=== PATIENT | female | born 1950 | race Caucasian/White ===

== ENCOUNTER 2023-06-23 20:42 | Inpatient (IN) | payer OTHER, SELFPAY ==
[2023-06-23 20:55] VITALS: BP 117/71; PULSE 68; RESP 16; TEMP 36.3; O2SAT 97
[2023-06-23 22:02] VITALS: BMI 19.9
--- NOTE | 2023-06-23 22:17 | PC.ADMIT ---
(ARRIVAL TIME 2054 FROM [facility]) pt presented in [facility] ed 8-21 with symptoms of persecutory delusions and auditory and visual hallucinations as well as wandering behavior. pt was found wandering the streets of [place] extremely paranoid and delusional about being raped. the pt has been noncompliant with her psych meds. also of concern is a neurocognitive deficit. on arrival pt is admitted with the assistance of in house candy packer Erik De Jesus. pt signs c-v admission paper. pt arrives smiling and laughing. she does not speak any luxembourgish. pt states that she does not know the year or month. she does not know where she is or where she came from. she does not know where she lives. she is able to give her birthday correctly. she does state she lives alone and daughter is her pcp (nirav). pt will only sign release forms for nirav. pt is suspicious and resistant to taking food or medicines. she is receptive to a bottle water which she drinks. later on pt is noted to be self dialoguing and gesturing with her hands as if their was somewhat at her bedside. her gait is steady and she uses no assist devices. to note she arrived with no personal belongings. hospitalist consult entered and texted to personal protection specialist hospitalist for routine consult.
[2023-06-24 07:00] VITALS: BMI 19.7
--- NOTE | 2023-06-24 10:38 | P.HPPS_ITS ---
HPI Date of Service: 06/24/23 Chief Complaint: Unspec. psychotic D/o, Mixed dementia, delusional Sources of Information: patient interviewed, chart reviewed and crisis/core team assessment reviewed HPI Subjective Notes: [place] Warning and Conditional Voluntary Narrative: The patient is a 73-year-old [place] female, with a were, mother of adult children, referred from the emergency room of another hospital for continuation of care. According to the crisis assessment, the patient was brought BI ambulance to the emergency room since she was found in the streets wandering grossly disorganized. Apparently she was complaining of auditory hallucinations, visual hallucinations and paranoid stating that she had been raped. Also it was evident that the patient had a severe cognitive impairment. The patient was medically cleared and later on assessed by crisis. According to the crisis assessment the patient is only Ecuadorean speaking and her daughter provide collateral information. As per report of her daughter, the patient suffers from dementia and she was previously admitted in [place] for a similar episode of psychosis and dementia. On interview, the patient was unable to remember how come she in the in the hospital. She stated that she was doing fine, but she was unable to remember details. At the moment of the interview, the patient denies auditory hallucinations, visual hallucinations or paranoia. We will try to gather collateral information, the patient signed herself into the hospital with a conditional voluntary but we will try to invoke her healthcare proxy. Past Psychiatric History: A prior an admission into the hospital for psychosis and dementia in [place] several years ago Medical Evaluation Reviewed: Yes PMFSH Family History: Denies Social History: The patient is only Ecuadorean speaking, she lives with her daughter and family his daughter. She is unable to provide details Substance History: Denies Trauma History: Denies Diagnostics Vital Signs (24Hr): Vital Signs - 24 hr 06/23/23 20:55 Temperature 97.3 F Pulse Rate 68 Respiratory Rate 16 Blood Pressure 117/71 Pulse Oximetry 97 Oxygen Delivery Method Room Air BMI result Body Mass Index 19.9 Meds/Allergies Meds Home Medications Medication Instructions Recorded Confirmed Type quetiapine 25 mg tablet (Seroquel) 12.5 mg PO BID 06/24/23 06/24/23 History risperidone 0.25 mg tablet 0.25 mg PO BID 06/24/23 06/24/23 History sertraline 50 mg tablet 50 mg PO DAILY 06/24/23 06/24/23 History trazodone 100 mg PO BEDTIME 06/24/23 06/24/23 History trazodone 50 mg tablet 50 mg PO PRN Anxiety 06/24/23 History Allergies Allergies Allergy/AdvReac Type Severity Reaction Status Date / Time No Known Allergies Allergy Verified 06/23/23 22:04 Mental Status Exam Mental Status Exam Patient Appearance: Appropriate Patient Orientation: Person Level of Consciousness: Awake Patient Behavior: Guarded and Passive Mood Description: Withdrawn Affect Description: Constricted Patient Cognition Impaired: Yes Ability to Follow Directions: Good Speech Pattern: Clear and Difficulty Finding Words Hallucinations: None Delusions: Paranoid Ideation and Ideas of Reference Thought Process: Distracted and Slowed Thinking Thought Content: positive for [place] and positive for Poverty of Content Judgement: Poor Assessment & Plan Assessment & Plan (1) Dementia: Status: Acute Code(s): F03.90 - Unspecified dementia, unspecified severity, without behavioral disturbance, psychotic disturbance, mood disturbance, and anxiety (2) Psychosis: Status: Acute Code(s): F29 - Unspecified psychosis not due to a substance or known physiological co ndition (3) Major depressive disorder: Status: Acute Code(s): F32.9 - Major depressive disorder, single episode, unspecified Plan The patient is an elderly Australian female, only Ecuadorean-speaking, mother of adult children with a past history of dementia, depression and psychosis admitted for wandering in the streets grossly disorganized and paranoid. She was medically cleared and transferring to this facility for psychiatric stabilization. On interview the patient denies acute psychotic symptoms. Plan 1. Gather collateral information. We will try to contact her daughter and get more information. 2. At this moment the patient sinus CV but we will try to find her healthcare proxy. 3. Continue with Zoloft 50 mg p.o. q.a.m.. 4. Continue with Risperdal as prescribed. 5. Follow-up with hospitalist. 6. Reassessment with results Patient educated on: diagnosis and therapeutic strategies Informed Consent: does not understand Reason for continued inpatient stay Substantial Risk for: inability to function, rapid decompensation and med/psych decompensation Statement Statement: I have reviewed the history and physical and performed a pertinent examination on my patient. No changes have occurred unless specified. If the History and Physical was not performed prior to admission, the Hospitalist's service will be consulted for completing the admission physical. Time Spent With Patient Time: Total time managing care of this patient today __45__ minutes.
--- NOTE | 2023-06-24 13:29 | MHC.CLN ---
NUTRITION ALERTED BY STAFF THAT PATIENT IS NOT EATING WELL. ADDING ENSURE TID. PROVIDES ADDITIONAL 1050 KCALS, 60 G PROTEIN.
--- NOTE | 2023-06-24 13:59 | HO.PM.IMCN ---
History of Present Illness Data of Consult Service Date: 06/24/23 Primary Care Provider: Unknown Physician HPI Reason for consult: Admission H&P Pt is a 73-year-old Frisian-speaking female with a PMH significant for advanced dementia with behavioral disturbances and delusions, depression, and anxiety who is admitted to [facility] for increasing auditory and visual hallucinations as well as increasing delusional and wandering behaviors. She has apparently been non-compliant with psychiatric medications recently. Medical consult for admission H&P. ?Pt is alert and oriented to self only and thus incapable of providing an accurate HPI. Labs reviewed, grossly unremarkable. EKG showed normal sinus rhythm with no evidence of ST elevations or depressions. Review of Systems Review of Systems: Unable to obtain d/t pt's mentation. [facility] Social History Household Members: None Household Members Other:: 0 Housing: Apartment Do you presently have visiting nurse or other home services: No (pts daughter works as her mill turner) Patient Tobacco Use Status: Never used Tobacco e-Cigarette/Vaping Use: Never Used Use of substances other than those prescribed or required for medical reasons: No Currently Displaying Signs/Symptoms of Drug Intoxication Withdrawal: No Advance Directives: No Advance Directives Information Provided: No Do you have thoughts of harming others: None Do you have a plan to hurt others: No Plan Recently lost weight without trying: No How much weight loss: Not applicable Eating poorly because of decreased appetite: No Nutrition screen score: 0 Nutrition Risks: No Nutritional Risk Patient : No : No Poor oral hygiene: No service: No Sexual orientation: Straight/Heterosexual Meds Allergies Allergy/AdvReac Type Severity Reaction Status Date / Time No Known Allergies Allergy Verified 06/23/23 22:04 Active Medications: Current Medications Acetaminophen (Acetaminophen 325 Mg Tablet) 650 mg PO Q6H PRN PRN Reason: Headache/Pain Mild Scale (1-3) Al Hydroxide/Mg Hydroxide (Magnesium Hydrox/Alum Hydrox 30 Ml Oral.Susp) 30 ml PO Q6H PRN PRN Reason: Heartburn/Nausea Hydroxyzine HCl (Hydroxyzine Hcl 25 Mg Tablet) 25 mg PO Q6H PRN PRN Reason: Anxiety Magnesium Hydroxide (Milk Of Magnesia 30 Ml Oral.Susp) 30 ml PO DAILY PRN PRN Reason: Constipation Trazodone HCl (Trazodone Hcl 50 Mg Tablet) 50 mg PO BEDTIME MRX1 PRN PRN Reason: Insomnia Home Medications Medication Instructions Recorded Confirmed Last Taken Type quetiapine 25 mg tablet (Seroquel) 12.5 mg PO BID 06/24/23 06/24/23 Unknown History risperidone 0.25 mg tablet 0.25 mg PO BID 06/24/23 06/24/23 Unknown History sertraline 50 mg tablet 50 mg PO DAILY 06/24/23 06/24/23 Unknown History trazodone 100 mg PO BEDTIME 06/24/23 06/24/23 Unknown History trazodone 50 mg tablet 50 mg PO PRN Anxiety 06/24/23 Unknown History Physical Exam Vital Signs and Narrative: Vital Signs: Last Vital Signs Temp 97.3 F 06/23/23 20:55 Pulse 68 06/23/23 20:55 Resp 16 06/23/23 20:55 BP 117/71 06/23/23 20:55 Pulse Ox 97 06/23/23 20:55 O2 Del Method Room Air 06/23/23 20:55 BMI result Body Mass Index 19.9 General: Alert and oriented to person only, no acute distress Resp: CTA bilaterally CVS: S1, S2, RRR GI: +BS, NT, no distention Skin: No rash Neuro: Cranial nerves II-XII grossly intact bilaterally. Motor grossly intact bilaterally Extremities: No edema Psych: Appropriate affect Assessment and Plan (1) Routine history and physical examination of adult: Status: Acute Plan Pt is a 73-year-old Frisian-speaking female with a PMH significant for advanced dementia with behavioral disturbances and delusions, depression, and anxiety who is admitted to [facility] for increasing auditory and visual hallucinations as well as increasing delusional and wandering behaviors. She has apparently been non-compliant with psychiatric medications recently. Medical consult for admission H&P. ?Pt is alert and oriented to self only and thus incapable of providing an accurate HPI. Mood disorder Plan as per psychiatry Pt otherwise has no known PMH and only on psychiatric home meds. Thank you for allowing us to participate in the care of this patient. Signing off at this time. Please let us know if there are any acute complaints or questions. Time Spent With Patient Time: Total time managing care of this patient today ____ minutes.
[2023-06-24] MEDS: Acetaminophen 325 MG TABLET 650 MG PO (16:24)
[2023-06-24] MEDS: traZODone HCL 100 MG TABLET PO (20:23)
[2023-06-24 20:26] VITALS: BP 135/68; PULSE 100; RESP 18; TEMP 36.1; O2SAT 95
[2023-06-25 08:00] VITALS: BP 120/66; PULSE 92; RESP 18; TEMP 37; O2SAT 97
[2023-06-25] MEDS: risperiDONE 0.25 MG TABLET PO (09:35)
[2023-06-25] MEDS: Sertraline HCL 50 MG TABLET PO (09:35)
--- NOTE | 2023-06-25 11:28 | P.PNPSI_ITS ---
Subjective Subjective Date of Service: 06/25/23 Reason For Visit: Unspec. psychotic D/o, Mixed dementia, delusional Subjective Notes: Section 12B Interim History: The nursing staff reported the patient is extremely confused, she cannot remember her wrong address and she is only oriented to self. According to the staff, she did not eat yesterday and she refused all her medications. Today in the morning she was eating her breakfast and her vital signs were okay. The high school social studies teacher reported that we have a family meeting at 01:30 with her daughter. On interview the patient is extremely confused pleasant and easily redirectable, she does not now that she is in the hospital. Mental Status Exam Mental Status Exam Patient Appearance: Appropriate Patient Orientation: Person and Situation Level of Consciousness: Awake and Appropriate Patient Behavior: Guarded and Passive Mood Description: Calm Affect Description: Constricted Patient Cognition Impaired: Yes Ability to Follow Directions: Fair Speech Pattern: Clear Hallucinations: None Delusions: Not Present Thought Process: Illogical, Distracted and Slowed Thinking Thought Content: positive for [place] and positive for Poverty of Content Judgement: Poor Diagnostics Vital Signs (24Hr): Vital Signs - 24 hr 06/24/23 20:26 06/25/23 08:00 Temperature 97.0 F 98.6 F Pulse Rate 100 92 Respiratory Rate 18 18 Blood Pressure 135/68 120/66 Pulse Oximetry 95 97 Oxygen Delivery Method Room Air Room Air BMI result Body Mass Index 19.7 Medications Medications Current Medications Acetaminophen (Acetaminophen 325 Mg Tablet) 650 mg PO Q6H PRN PRN Reason: Headache/Pain Mild Scale (1-3) Last Admin: 06/24/23 16:24 Dose: 650 mg Al Hydroxide/Mg Hydroxide (Magnesium Hydrox/Alum Hydrox 30 Ml Oral.Susp) 30 ml PO Q6H PRN PRN Reason: Heartburn/Nausea Donepezil HCl (Donepezil Hcl 5 Mg Tablet) 5 mg PO BEDTIME [facility] Hydroxyzine HCl (Hydroxyzine Hcl 25 Mg Tablet) 25 mg PO Q6H PRN PRN Reason: Anxiety Magnesium Hydroxide (Milk Of Magnesia 30 Ml Oral.Susp) 30 ml PO DAILY PRN PRN Reason: Constipation Risperidone (Risperidone 0.25 Mg Tablet) 0.25 mg PO BID [facility] Last Admin: 06/25/23 09:35 Dose: 0.25 mg Sertraline HCl (Sertraline Hcl 50 Mg Tablet) 50 mg PO DAILY [facility]ATH[facility]INE Last Admin: 06/25/23 09:35 Dose: 50 mg Trazodone HCl (Trazodone Hcl 50 Mg Tablet) 50 mg PO BEDTIME MRX1 PRN PRN Reason: Insomnia Trazodone HCl (Trazodone Hcl 100 Mg Tablet) 100 mg PO BEDTIME [facility] Last Admin: 06/24/23 20:23 Dose: 100 mg Allergies Allergies Allergy/AdvReac Type Severity Reaction Status Date / Time No Known Allergies Allergy Verified 06/23/23 22:04 Assessment & Plan Assessment & Plan (1) Routine history and physical examination of adult: Status: Acute Code(s): Z00.00 - Encounter for general adult medical examination without abnormal findings Plan Pt is a 73-year-old Nicaraguan-speaking female with a PMH significant for advanced dementia with behavioral disturbances and delusions, depression, and anxiety who is admitted to [facility] for increasing auditory and visual hallucinations as well as increasing delusional and wandering behaviors. She has apparently been non-compliant with psychiatric medications recently. Medical consult for admission H&P. ?Pt is alert and oriented to self only and thus incapable of providing an accurate HPI. Plan 1. Gather collateral information today we have a family meeting with her daughter at 13:30. 2. Continue with Risperdal and Zoloft as prescribed. 3. Reassessment with results. 4. We will discuss disposition most likely she needs to go to a long-term care. Reason for continued inpatient stay Substantial Risk for: inability to function, rapid decompensation and med/psych decompensation Time Spent With Patient Time: Total time managing care of this patient today _20___ minutes.
[2023-06-25 18:00] VITALS: BP 133/84; PULSE 86; RESP 17; TEMP 36.3
[2023-06-25] MEDS: Acetaminophen 325 MG TABLET 650 MG PO (21:59)
[2023-06-25] MEDS: Donepezil HCl 5 MG TABLET PO (22:00)
[2023-06-25] MEDS: traZODone HCL 100 MG TABLET PO (22:00)
[2023-06-26 08:00] VITALS: BP 104/63; PULSE 67; RESP 16; TEMP 36.6; O2SAT 99
[2023-06-26] MEDS: risperiDONE 0.25 MG TABLET PO ×2 (08:23→20:04)
[2023-06-26] MEDS: Sertraline HCL 50 MG TABLET PO (08:23)
[2023-06-26] MEDS: Acetaminophen 325 MG TABLET 650 MG PO ×2 (08:33→16:28)
[2023-06-26 18:00] VITALS: BP 137/79; PULSE 72; RESP 19; O2SAT 100
[2023-06-26] MEDS: traZODone HCL 100 MG TABLET PO (20:04)
[2023-06-26] MEDS: Donepezil HCl 5 MG TABLET PO (20:04)
[2023-06-27 07:45] VITALS: BP 108/80; PULSE 78; RESP 18; TEMP 36.7; O2SAT 98
[2023-06-27] MEDS: Sertraline HCL 50 MG TABLET PO (08:12)
[2023-06-27] MEDS: risperiDONE 0.25 MG TABLET PO ×2 (08:12→20:48)
[2023-06-27] MEDS: Acetaminophen 325 MG TABLET 650 MG PO (08:12)
--- NOTE | 2023-06-27 16:19 | P.PNPSI_ITS ---
Subjective Subjective Date of Service: 06/27/23 Reason For Visit: Unspec. psychotic D/o, Mixed dementia, delusional Interim History: Met with patient. Discussed with Nursing. No management issues. Sleeping okay. Interviewed with a technical translator [id number]. patient clearly with cognitive impa irments consistent with established dementia. Stated she did not know why bid writer was asking her questions and that she would medications at home that she could take and did not need to be in the hospital. Denies feeling depressed suicidal agitated or psychotic. Medication Compliance: Yes Side effects from medications: No Attending Groups: No Review of Systems Acute medical concerns: No Review of Systems Review of Systems Yes Unobtainable due to mental status Mental Status Exam Mental Status Exam Narrative: Pleasant. Engaged. Fairly presented. Clear cognitive impairment consistent with established dementia. Difficulty participating in interview or answering questions with technical translator services assistance also. No evidence of depression SI HI psychosis. Insight and judgment poor Diagnostics Vital Signs (24Hr): Vital Signs - 24 hr 06/26/23 18:00 06/27/23 07:45 Temperature 98.1 F Pulse Rate 72 78 Respiratory Rate 19 18 Blood Pressure 137/79 108/80 Pulse Oximetry 100 98 Oxygen Delivery Method Room Air Room Air BMI result Body Mass Index 19.7 Medications Medications Current Medications Acetaminophen (Acetaminophen 325 Mg Tablet) 650 mg PO Q6H PRN PRN Reason: Headache/Pain Mild Scale (1-3) Last Admin: 06/27/23 08:12 Dose: 650 mg Al Hydroxide/Mg Hydroxide (Magnesium Hydrox/Alum Hydrox 30 Ml Oral.Susp) 30 ml PO Q6H PRN PRN Reason: Heartburn/Nausea Donepezil HCl (Donepezil Hcl 5 Mg Tablet) 5 mg PO BEDTIME [facility] Last Admin: 06/26/23 20:04 Dose: 5 mg Hydroxyzine HCl (Hydroxyzine Hcl 25 Mg Tablet) 25 mg PO Q6H PRN PRN Reason: Anxiety Ibuprofen (Ibuprofen 600 Mg Tablet) 600 mg PO Q6H PRN PRN Reason: pain not relieved by tylenol Magnesium Hydroxide (Milk Of Magnesia 30 Ml Oral.Susp) 30 ml PO DAILY PRN PRN Reason: Constipation Risperidone (Risperidone 0.25 Mg Tablet) 0.25 mg PO BID [facility] Last Admin: 06/27/23 08:12 Dose: 0.25 mg Sertraline HCl (Sertraline Hcl 50 Mg Tablet) 50 mg PO DAILY [facility] Last Admin: 06/27/23 08:12 Dose: 50 mg Trazodone HCl (Trazodone Hcl 50 Mg Tablet) 50 mg PO BEDTIME MRX1 PRN PRN Reason: Insomnia Trazodone HCl (Trazodone Hcl 100 Mg Tablet) 100 mg PO BEDTIME [facility] Last Admin: 06/26/23 20:04 Dose: 100 mg Allergies Allergies Allergy/AdvReac Type Severity Reaction Status Date / Time No Known Allergies Allergy Verified 06/23/23 22:04 Assessment & Plan Assessment & Plan (1) Routine history and physical examination of adult: Status: Acute Code(s): Z00.00 - Encounter for general adult medical examination without abnormal findings Plan Pt is a 73-year-old Ecuadorean-speaking female with a PMH significant for advanced dementia with behavioral disturbances and delusions, depression, and anxiety who is admitted to [facility] for increasing auditory and visual hallucinations as well as increasing delusional and wandering behaviors. She has apparently been non-compliant with psychiatric medications recently. Medical consult for admission H&P. ?Pt is alert and oriented to self only and thus incapable of providing an accurate HPI. Plan 1. Gather collateral information today we have a family meeting with her daughter at 13:30. 2. Continue with Risperdal and Zoloft as prescribed. 3. Reassessment with results. 4. We will discuss disposition most likely she needs to go to a long-term care. 06/27/2023: No changes to current plan Reason for continued inpatient stay Substantial Risk for: inability to function Time Spent With Patient Time: Total time managing care of this patient today ____ minutes.
[2023-06-27 18:00] VITALS: BP 138/78; PULSE 80; RESP 16; TEMP 36.4; O2SAT 94
[2023-06-27] MEDS: traZODone HCL 100 MG TABLET PO (20:47)
[2023-06-27] MEDS: Donepezil HCl 5 MG TABLET PO (20:48)
[2023-06-28 08:00] VITALS: BP 103/65; PULSE 82; RESP 18; TEMP 36.7; O2SAT 99
[2023-06-28] MEDS: risperiDONE 0.25 MG TABLET PO ×2 (08:18→20:34)
[2023-06-28] MEDS: Sertraline HCL 50 MG TABLET PO (08:18)
--- NOTE | 2023-06-28 13:35 | HO.PSYCHPN ---
Subjective Subjective Date of Service: 06/28/23 Reason For Visit: Unspec. psychotic D/o, Mixed dementia, delusional Subjective Notes: Conditional Voluntary Interim History: Pt presents as somewhat suspicious and paranoid about staff on this unit. She does not know where she is or why she is here. When asked about hearing voices, pt states that she can't talk about it. Pt slept 7hrs. VS stable. Review of Systems Review of Systems Unable to obtain d/t pt's mentation. Yes all other systems are reviewed and are negative and Unobtainable due to mental status Mental Status Exam Mental Status Exam Narrative: Appearance: behavior: Speech: Psychomotor: TP: TC: Mood: Affect: VH/AH: Delusions: Insight/judgment: Memory/cog: Patient Appearance: Appropriate Patient Orientation: Person and Situation Level of Consciousness: Awake and Appropriate Patient Behavior: Guarded and Passive Mood Description: Calm Affect Description: Constricted Patient Cognition Impaired: Yes Ability to Follow Directions: Fair Speech Pattern: Clear Diagnostics Vital Signs (24Hr): Vital Signs - 24 hr 06/27/23 18:00 06/28/23 08:00 Temperature 97.5 F 98.1 F Pulse Rate 80 82 Respiratory Rate 16 18 Blood Pressure 138/78 103/65 Pulse Oximetry 94 99 Oxygen Delivery Method Room Air Room Air BMI result Body Mass Index 19.7 Medications Medications Current Medications Acetaminophen (Acetaminophen 325 Mg Tablet) 650 mg PO Q6H PRN PRN Reason: Headache/Pain Mild Scale (1-3) Last Admin: 06/27/23 08:12 Dose: 650 mg Al Hydroxide/Mg Hydroxide (Magnesium Hydrox/Alum Hydrox 30 Ml Oral.Susp) 30 ml PO Q6H PRN PRN Reason: Heartburn/Nausea Donepezil HCl (Donepezil Hcl 5 Mg Tablet) 5 mg PO BEDTIME [facility] Last Admin: 06/27/23 20:48 Dose: 5 mg Hydroxyzine HCl (Hydroxyzine Hcl 25 Mg Tablet) 25 mg PO Q6H PRN PRN Reason: Anxiety Ibuprofen (Ibuprofen 600 Mg Tablet) 600 mg PO Q6H PRN PRN Reason: pain not relieved by tylenol Magnesium Hydroxide (Milk Of Magnesia 30 Ml Oral.Susp) 30 ml PO DAILY PRN PRN Reason: Constipation Risperidone (Risperidone 0.25 Mg Tablet) 0.25 mg PO BID [facility] Last Admin: 06/28/23 08:18 Dose: 0.25 mg Sertraline HCl (Sertraline Hcl 50 Mg Tablet) 50 mg PO DAILY [facility] Last Admin: 06/28/23 08:18 Dose: 50 mg Trazodone HCl (Trazodone Hcl 50 Mg Tablet) 50 mg PO BEDTIME MRX1 PRN PRN Reason: Insomnia Trazodone HCl (Trazodone Hcl 100 Mg Tablet) 100 mg PO BEDTIME [facility] Last Admin: 06/27/23 20:47 Dose: 100 mg Allergies Allergies Allergy/AdvReac Type Severity Reaction Status Date / Time No Known Allergies Allergy Verified 06/23/23 22:04 Assessment & Plan Assessment & Plan (1) Major neurocognitive disorder: Status: Acute Code(s): F03.90 - Unspecified dementia, unspecified severity, without behavioral disturbance, psychotic disturbance, mood disturbance, and anxiety Plan Pt is a 73-year-old Lao-speaking female with a PMH significant for advanced dementia with behavioral disturbances and delusions, depression, and anxiety who is admitted to [facility] for increasing auditory and visual hallucinations as well as increasing delusional and wandering behaviors. She has apparently been non-compliant with psychiatric medications recently. Medical consult for admission H&P. ?Pt is alert and oriented to self only and thus incapable of providing an accurate HPI. Plan 1. Gather collateral information today we have a family meeting with her daughter at 13:30. 2. Continue with Risperdal and Zoloft as prescribed. 3. Reassessment with results. 4. We will discuss disposition most likely she needs to go to a long-term care. 06/27/2023: No changes to current plan 06/28 continue tx. Reason for continued inpatient stay Substantial Risk for: inability to function Time Spent With Patient Time: Total time managing care of this patient today ____ minutes.
[2023-06-28 18:00] VITALS: BP 116/67; PULSE 80; RESP 17; TEMP 36.4; O2SAT 95
[2023-06-28] MEDS: Donepezil HCl 5 MG TABLET PO (20:34)
[2023-06-28] MEDS: traZODone HCL 100 MG TABLET PO (20:34)
[2023-06-29 07:55] VITALS: BP 110/63; PULSE 77; RESP 18; TEMP 37; O2SAT 99
[2023-06-29] MEDS: Sertraline HCL 50 MG TABLET PO (08:06)
[2023-06-29] MEDS: risperiDONE 0.25 MG TABLET PO ×2 (08:06→11:56)
--- NOTE | 2023-06-29 08:39 | HO.PSYCHPN ---
Subjective Subjective Date of Service: 06/29/23 Reason For Visit: Unspec. psychotic D/o, Mixed dementia, delusional Subjective Notes: Conditional Voluntary Healthcare Proxy: Yes Interim History: Pt continues to present as suspicious about staff. She went to group and later reported to this journalists and other writers that she went to [facility] and they had mass. She is suspicious of peers, she believes she knows peers for a long time, I know who they are. She denies SI/HI. She presents as fearful. No behavioral concerns Review of Systems Review of Systems Unable to obtain d/t pt's mentation. Yes all other systems are reviewed and are negative and Unobtainable due to mental status Mental Status Exam Mental Status Exam Narrative: Appearance:thin, casually groomed, fair hygiene, in NAD behavior:cooperative Speech: mostly clear, normal rate, rhythm/volume, spontaneous Psychomotor:no agitation or retardation noted TP:tangential at times TC: paranoid ideas as people going after her. Mood: I don't know, I don't feel safe here Affect: anxious, fearful VH/AH:appears to respond to internal stimuli Delusions: paranoid ideas Insight/judgment:impaired x 2. Memory/cog:alert, not oriented to place, year, month, or situation Diagnostics Vital Signs (24Hr): Vital Signs - 24 hr 06/28/23 18:00 06/29/23 07:55 Temperature 97.6 F 98.6 F Pulse Rate 80 77 Respiratory Rate 17 18 Blood Pressure 116/67 110/63 Pulse Oximetry 95 99 Oxygen Delivery Method Room Air Room Air BMI result Body Mass Index 19.7 Medications Medications Current Medications Acetaminophen (Acetaminophen 325 Mg Tablet) 650 mg PO Q6H PRN PRN Reason: Headache/Pain Mild Scale (1-3) Last Admin: 06/27/23 08:12 Dose: 650 mg Al Hydroxide/Mg Hydroxide (Magnesium Hydrox/Alum Hydrox 30 Ml Oral.Susp) 30 ml PO Q6H PRN PRN Reason: Heartburn/Nausea Donepezil HCl (Donepezil Hcl 5 Mg Tablet) 5 mg PO BEDTIME [facility] Last Admin: 06/28/23 20:34 Dose: 5 mg Hydroxyzine HCl (Hydroxyzine Hcl 25 Mg Tablet) 25 mg PO Q6H PRN PRN Reason: Anxiety Ibuprofen (Ibuprofen 600 Mg Tablet) 600 mg PO Q6H PRN PRN Reason: pain not relieved by tylenol Magnesium Hydroxide (Milk Of Magnesia 30 Ml Oral.Susp) 30 ml PO DAILY PRN PRN Reason: Constipation Risperidone (Risperidone 0.25 Mg Tablet) 0.25 mg PO BID [facility] Last Admin: 06/29/23 08:06 Dose: 0.25 mg Sertraline HCl (Sertraline Hcl 50 Mg Tablet) 50 mg PO DAILY [facility] Last Admin: 06/29/23 08:06 Dose: 50 mg Trazodone HCl (Trazodone Hcl 50 Mg Tablet) 50 mg PO BEDTIME MRX1 PRN PRN Reason: Insomnia Trazodone HCl (Trazodone Hcl 100 Mg Tablet) 100 mg PO BEDTIME [facility] Last Admin: 06/28/23 20:34 Dose: 100 mg Allergies Allergies Allergy/AdvReac Type Severity Reaction Status Date / Time No Known Allergies Allergy Verified 06/23/23 22:04 Assessment & Plan Assessment & Plan (1) Major neurocognitive disorder: Status: Acute Code(s): F03.90 - Unspecified dementia, unspecified severity, without behavioral disturbance, psychotic disturbance, mood disturbance, and anxiety Plan Pt is a 73-year-old Cuban-speaking female with a PMH significant for advanced dementia with behavioral disturbances and delusions, depression, and anxiety who is admitted to [facility] for increasing auditory and visual hallucinations as well as increasing delusional and wandering behaviors. She has apparently been non-compliant with psychiatric medications recently. Medical consult for admission H&P. ?Pt is alert and oriented to self only and thus incapable of providing an accurate HPI. Plan 1. Gather collateral information today we have a family meeting with her daughter at 13:30. 2. Continue with Risperdal and Zoloft as prescribed. 3. Reassessment with results. 4. We will discuss disposition most likely she needs to go to a long-term care. 06/27/2023: No changes to current plan 06/28 continue tx. 06/29 increase risperidone to 0.5mg po BID Reason for continued inpatient stay Substantial Risk for: inability to function Time Spent With Patient Time: Total time managing care of this patient today ____ minutes.
[2023-06-29] MEDS: Acetaminophen 325 MG TABLET 650 MG PO (10:39)
[2023-06-29 20:00] VITALS: BP 117/55; PULSE 70; RESP 16; TEMP 36.5; O2SAT 99
[2023-06-29] MEDS: Donepezil HCl 5 MG TABLET PO (20:07)
[2023-06-29] MEDS: risperiDONE 0.25 MG TABLET 0.5 MG PO (20:07)
[2023-06-29] MEDS: traZODone HCL 100 MG TABLET PO (20:08)
[2023-06-30 08:02] VITALS: BP 130/68; PULSE 75; RESP 16; TEMP 36.3; O2SAT 95
[2023-06-30] MEDS: risperiDONE 0.25 MG TABLET 0.5 MG PO ×2 (08:44→20:56)
[2023-06-30] MEDS: Sertraline HCL 50 MG TABLET PO (08:45)
[2023-06-30 18:00] VITALS: BP 118/59; PULSE 73; RESP 18; TEMP 36.6; O2SAT 93
[2023-06-30] MEDS: Donepezil HCl 5 MG TABLET PO (20:56)
[2023-06-30] MEDS: traZODone HCL 100 MG TABLET PO (20:56)
[2023-06-30] MEDS: hydrOXYzine HCL 25 MG TABLET PO (20:56)
--- NOTE | 2023-06-30 21:40 | HO.PSYCHPN ---
Subjective Subjective Date of Service: 06/30/23 Reason For Visit: Unspec. psychotic D/o, Mixed dementia, delusional Subjective Notes: Conditional Voluntary Interim History: Met with pt and her daughter. Pt reports peers here have guns and are drinking a lot. She is not oriented to place or situation. She is very fearful and anxious due to paranoid delusions. She denies SI/HI. She presents as fearful. No behavioral concerns Medication Compliance: Yes Side effects from medications: No Attending Groups: Yes Review of Systems Review of Systems Unable to obtain d/t pt's mentation. Yes all other systems are reviewed and are negative and Unobtainable due to mental status Mental Status Exam Mental Status Exam Narrative: Appearance:thin, casually groomed, fair hygiene, in NAD behavior:cooperative Speech: mostly clear, normal rate, rhythm/volume, spontaneous Psychomotor:no agitation or retardation noted TP:tangential at times TC: paranoid ideas as people going after her. Mood: I don't know, I don't feel safe here Affect: anxious, fearful VH/AH:appears to respond to internal stimuli Delusions: paranoid ideas Insight/judgment:impaired x 2. Memory/cog:alert, not oriented to place, year, month, or situation Diagnostics Vital Signs (24Hr): Vital Signs - 24 hr 06/30/23 08:02 Temperature 97.4 F Pulse Rate 75 Respiratory Rate 16 Blood Pressure 130/68 Pulse Oximetry 95 Oxygen Delivery Method Room Air BMI result Body Mass Index 19.7 Medications Medications Current Medications Acetaminophen (Acetaminophen 325 Mg Tablet) 650 mg PO Q6H PRN PRN Reason: Headache/Pain Mild Scale (1-3) Last Admin: 06/29/23 10:39 Dose: 650 mg Al Hydroxide/Mg Hydroxide (Magnesium Hydrox/Alum Hydrox 30 Ml Oral.Susp) 30 ml PO Q6H PRN PRN Reason: Heartburn/Nausea Donepezil HCl (Donepezil Hcl 5 Mg Tablet) 5 mg PO BEDTIME [facility] Last Admin: 06/30/23 20:56 Dose: 5 mg Hydroxyzine HCl (Hydroxyzine Hcl 25 Mg Tablet) 25 mg PO Q6H PRN PRN Reason: Anxiety Last Admin: 06/30/23 20:56 Dose: 25 mg Ibuprofen (Ibuprofen 600 Mg Tablet) 600 mg PO Q6H PRN PRN Reason: pain not relieved by tylenol Magnesium Hydroxide (Milk Of Magnesia 30 Ml Oral.Susp) 30 ml PO DAILY PRN PRN Reason: Constipation Risperidone (Risperidone 0.25 Mg Tablet) 0.5 mg PO BID [facility] Last Admin: 06/30/23 20:56 Dose: 0.5 mg Sertraline HCl (Sertraline Hcl 50 Mg Tablet) 50 mg PO DAILY [facility] Last Admin: 06/30/23 08:45 Dose: 50 mg Trazodone HCl (Trazodone Hcl 50 Mg Tablet) 50 mg PO BEDTIME MRX1 PRN PRN Reason: Insomnia Trazodone HCl (Trazodone Hcl 100 Mg Tablet) 100 mg PO BEDTIME [facility] Last Admin: 06/30/23 20:56 Dose: 100 mg Allergies Allergies Allergy/AdvReac Type Severity Reaction Status Date / Time No Known Allergies Allergy Verified 06/23/23 22:04 Assessment & Plan Assessment & Plan (1) Major neurocognitive disorder: Status: Acute Code(s): F03.90 - Unspecified dementia, unspecified severity, without behavioral disturbance, psychotic disturbance, mood disturbance, and anxiety Plan Pt is a 73-year-old Divehi-speaking female with a PMH significant for advanced dementia with behavioral disturbances and delusions, depression, and anxiety who is admitted to [facility] for increasing auditory and visual hallucinations as well as increasing delusional and wandering behaviors. She has apparently been non-compliant with psychiatric medications recently. Medical consult for admission H&P. ?Pt is alert and oriented to self only and thus incapable of providing an accurate HPI. Plan 1. Gather collateral information today we have a family meeting with her daughter at 13:30. 2. Continue with Risperdal and Zoloft as prescribed. 3. Reassessment with results. 4. We will discuss disposition most likely she needs to go to a long-term care. 06/27/2023: No changes to current plan 06/28 continue tx. 06/29 increase risperidone to 0.5mg po BID 06/30 increase risperidone to 1mg po BID. Reason for continued inpatient stay Substantial Risk for: inability to function Time Spent With Patient Time: Total time managing care of this patient today ____ minutes.
[2023-07-01] MEDS: risperiDONE 0.25 MG TABLET 0.5 MG PO ×2 (10:12→20:20)
[2023-07-01] MEDS: Sertraline HCL 50 MG TABLET PO (10:12)
[2023-07-01 10:14] VITALS: BP 93/59; PULSE 79; RESP 16; TEMP 36.7; O2SAT 100
[2023-07-01 18:00] VITALS: BP 118/69; PULSE 79; RESP 17; TEMP 36.6; O2SAT 94
--- NOTE | 2023-07-01 20:05 | HO.PSYCHPN ---
Subjective Subjective Date of Service: 07/01/23 Reason For Visit: Unspec. psychotic D/o, Mixed dementia, delusional Subjective Notes: Conditional Voluntary Healthcare Proxy: Yes Interim History: Pt continues to present as paranoid, thinking peers are drinking alcohol. She does not remember seeing daughter yesterday, thinks daughter may be stealing from her. She is not oriented to place or situation. She denies SI/HI. Review of Systems Review of Systems Unable to obtain d/t pt's mentation. Yes all other systems are reviewed and are negative and Unobtainable due to mental status Mental Status Exam Mental Status Exam Narrative: Appearance:thin, casually groomed, fair hygiene, in NAD behavior:cooperative Speech: mostly clear, normal rate, rhythm/volume, spontaneous Psychomotor:no agitation or retardation noted TP:tangential at times TC: paranoid ideas as people going after her. Mood: I don't know, I don't feel safe here Affect: anxious, fearful VH/AH:appears to respond to internal stimuli Delusions: paranoid ideas Insight/judgment:impaired x 2. Memory/cog:alert, not oriented to place, year, month, or situation Diagnostics Vital Signs (24Hr): Vital Signs - 24 hr 07/01/23 10:14 Temperature 98.1 F Pulse Rate 79 Respiratory Rate 16 Blood Pressure 93/59 L Pulse Oximetry 100 Oxygen Delivery Method Room Air BMI result Body Mass Index 20.0 Medications Medications Current Medications Acetaminophen (Acetaminophen 325 Mg Tablet) 650 mg PO Q6H PRN PRN Reason: Headache/Pain Mild Scale (1-3) Last Admin: 06/29/23 10:39 Dose: 650 mg Al Hydroxide/Mg Hydroxide (Magnesium Hydrox/Alum Hydrox 30 Ml Oral.Susp) 30 ml PO Q6H PRN PRN Reason: Heartburn/Nausea Donepezil HCl (Donepezil Hcl 5 Mg Tablet) 5 mg PO BEDTIME [facility] Last Admin: 06/30/23 20:56 Dose: 5 mg Hydroxyzine HCl (Hydroxyzine Hcl 25 Mg Tablet) 25 mg PO Q6H PRN PRN Reason: Anxiety Last Admin: 06/30/23 20:56 Dose: 25 mg Ibuprofen (Ibuprofen 600 Mg Tablet) 600 mg PO Q6H PRN PRN Reason: pain not relieved by tylenol Magnesium Hydroxide (Milk Of Magnesia 30 Ml Oral.Susp) 30 ml PO DAILY PRN PRN Reason: Constipation Risperidone (Risperidone 0.25 Mg Tablet) 0.5 mg PO BID [facility] Last Admin: 07/01/23 10:12 Dose: 0.5 mg Sertraline HCl (Sertraline Hcl 50 Mg Tablet) 50 mg PO DAILY [facility] Last Admin: 07/01/23 10:12 Dose: 50 mg Trazodone HCl (Trazodone Hcl 50 Mg Tablet) 50 mg PO BEDTIME MRX1 PRN PRN Reason: Insomnia Trazodone HCl (Trazodone Hcl 100 Mg Tablet) 100 mg PO BEDTIME [facility] Last Admin: 06/30/23 20:56 Dose: 100 mg Allergies Allergies Allergy/AdvReac Type Severity Reaction Status Date / Time No Known Allergies Allergy Verified 06/23/23 22:04 Assessment & Plan Assessment & Plan (1) Major neurocognitive disorder: Status: Acute Code(s): F03.90 - Unspecified dementia, unspecified severity, without behavioral disturbance, psychotic disturbance, mood disturbance, and anxiety Plan Pt is a 73-year-old Sudanese-speaking female with a PMH significant for advanced dementia with behavioral disturbances and delusions, depression, and anxiety who is admitted to [facility] for increasing auditory and visual hallucinations as well as increasing delusional and wandering behaviors. She has apparently been non-compliant with psychiatric medications recently. Medical consult for admission H&P. ?Pt is alert and oriented to self only and thus incapable of providing an accurate HPI. Plan 1. Gather collateral information today we have a family meeting with her daughter at 13:30. 2. Continue with Risperdal and Zoloft as prescribed. 3. Reassessment with results. 4. We will discuss disposition most likely she needs to go to a long-term care. 06/27/2023: No changes to current plan 06/28 continue tx. 06/29 increase risperidone to 0.5mg po BID 06/30 increase risperidone to 1mg po BID. 07/01 continue tx. Reason for continued inpatient stay Substantial Risk for: inability to function Time Spent With Patient Time: Total time managing care of this patient today ____ minutes.
[2023-07-01] MEDS: traZODone HCL 100 MG TABLET PO (20:21)
[2023-07-01] MEDS: Donepezil HCl 5 MG TABLET PO (20:21)
[2023-07-02 08:35] VITALS: BP 86/61; PULSE 97; RESP 18; TEMP 35.9
[2023-07-02] MEDS: Sertraline HCL 50 MG TABLET PO (08:47)
[2023-07-02] MEDS: risperiDONE 0.25 MG TABLET 0.5 MG PO ×2 (08:47→20:23)
[2023-07-02 08:50] VITALS: BP 106/64
--- NOTE | 2023-07-02 15:22 | P.PNPSI_ITS ---
Subjective Subjective Date of Service: 07/02/23 Reason For Visit: Unspec. psychotic D/o, Mixed dementia, delusional Subjective Notes: Conditional Voluntary Healthcare Proxy: Yes Interim History: Pt less hypervigilant and fearful but continues to present as paranoid and suspicious. She believes peers have guns, and are trying to hurt her. She talks to herself. She denied SI/HI. She is visible at times guarded with peers. She is taking medications as prescribed. Medication Compliance: Yes Review of Systems Review of Systems Unable to obtain d/t pt's mentation. Yes all other systems are reviewed and are negative and Unobtainable due to mental status Mental Status Exam Mental Status Exam Narrative: Appearance:thin, casually groomed, fair hygiene, in NAD behavior:cooperative Speech: mostly clear, normal rate, rhythm/volume, spontaneous Psychomotor:no agitation or retardation noted TP:tangential at times TC: paranoid ideas as people going after her. Mood: I don't know, I don't feel safe here Affect: anxious, fearful VH/AH:appears to respond to internal stimuli Delusions: paranoid ideas Insight/judgment:impaired x 2. Memory/cog:alert, not oriented to place, year, month, or situation Diagnostics Vital Signs (24Hr): Vital Signs - 24 hr 07/01/23 18:00 07/02/23 08:35 07/02/23 08:50 Temperature 97.9 F 96.7 F L Pulse Rate 79 97 Respiratory Rate 17 18 Blood Pressure 118/69 86/61 L 106/64 Pulse Oximetry 94 Oxygen Delivery Method Room Air Room Air BMI result Body Mass Index 20.0 Medications Medications Current Medications Acetaminophen (Acetaminophen 325 Mg Tablet) 650 mg PO Q6H PRN PRN Reason: Headache/Pain Mild Scale (1-3) Last Admin: 06/29/23 10:39 Dose: 650 mg Al Hydroxide/Mg Hydroxide (Magnesium Hydrox/Alum Hydrox 30 Ml Oral.Susp) 30 ml PO Q6H PRN PRN Reason: Heartburn/Nausea Donepezil HCl (Donepezil Hcl 5 Mg Tablet) 5 mg PO BEDTIME [facility] Last Admin: 07/01/23 20:21 Dose: 5 mg Hydroxyzine HCl (Hydroxyzine Hcl 25 Mg Tablet) 25 mg PO Q6H PRN PRN Reason: Anxiety Last Admin: 06/30/23 20:56 Dose: 25 mg Ibuprofen (Ibuprofen 600 Mg Tablet) 600 mg PO Q6H PRN PRN Reason: pain not relieved by tylenol Magnesium Hydroxide (Milk Of Magnesia 30 Ml Oral.Susp) 30 ml PO DAILY PRN PRN Reason: Constipation Risperidone (Risperidone 0.25 Mg Tablet) 0.5 mg PO BID [facility] Last Admin: 07/02/23 08:47 Dose: 0.5 mg Sertraline HCl (Sertraline Hcl 50 Mg Tablet) 50 mg PO DAILY [facility] Last Admin: 07/02/23 08:47 Dose: 50 mg Trazodone HCl (Trazodone Hcl 50 Mg Tablet) 50 mg PO BEDTIME MRX1 PRN PRN Reason: Insomnia Trazodone HCl (Trazodone Hcl 100 Mg Tablet) 100 mg PO BEDTIME [facility] Last Admin: 07/01/23 20:21 Dose: 100 mg Allergies Allergies Allergy/AdvReac Type Severity Reaction Status Date / Time No Known Allergies Allergy Verified 06/23/23 22:04 Assessment & Plan Assessment & Plan (1) Major neurocognitive disorder: Status: Acute Code(s): F03.90 - Unspecified dementia, unspecified severity, without behavioral disturbance, psychotic disturbance, mood disturbance, and anxiety Plan Pt is a 73-year-old Lithuanian-speaking female with a PMH significant for advanced dementia with behavioral disturbances and delusions, depression, and anxiety who is admitted to [facility] for increasing auditory and visual hallucinations as well as increasing delusional and wandering behaviors. She has apparently been non-compliant with psychiatric medications recently. Medical consult for admission H&P. ?Pt is alert and oriented to self only and thus incapable of providing an accurate HPI. Plan 1. Gather collateral information today we have a family meeting with her daughter at 13:30. 2. Continue with Risperdal and Zoloft as prescribed. 3. Reassessment with results. 4. We will discuss disposition most likely she needs to go to a long-term care. 06/27/2023: No changes to current plan 06/28 continue tx. 06/29 increase risperidone to 0.5mg po BID 06/30 increase risperidone to 1mg po BID. 07/01 continue tx. 07/02 continue tx. Reason for continued inpatient stay Substantial Risk for: inability to function Time Spent With Patient Time: Total time managing care of this patient today ____ minutes.
[2023-07-02 18:00] VITALS: BP 110/64; PULSE 74; RESP 16; TEMP 36.6; O2SAT 100
[2023-07-02] MEDS: traZODone HCL 100 MG TABLET PO (20:23)
[2023-07-02] MEDS: Donepezil HCl 5 MG TABLET PO (20:24)
[2023-07-03 08:00] VITALS: BP 110/70; PULSE 68; RESP 18; TEMP 36.7; O2SAT 100
[2023-07-03] MEDS: Sertraline HCL 50 MG TABLET PO (08:29)
[2023-07-03] MEDS: risperiDONE 0.25 MG TABLET 0.5 MG PO ×2 (08:29→20:28)
--- NOTE | 2023-07-03 12:44 | HO.PSYCHPN ---
Subjective Subjective Date of Service: 07/03/23 Reason For Visit: Unspec. psychotic D/o, Mixed dementia, delusional Subjective Notes: Conditional Voluntary Interim History: Patient was seen and discussed in rounds today. Records and plans were reviewed. She continues to be mostly paranoid. Risperidone was recently increased. She has been showing some slight improvements. No complaints or side effects. Eating and sleeping adequately. Review of Systems Review of Systems Yes Unobtainable due to mental status Mental Status Exam Mental Status Exam Narrative: In today's visit she is alert. She could not be examined fully because of language barrier. She appears confused. No dangerous behaviors. Cognitively impaired. Judgment is impaired by observation and report Diagnostics Vital Signs (24Hr): Vital Signs - 24 hr 07/02/23 18:00 07/03/23 08:00 Temperature 97.9 F 98.0 F Pulse Rate 74 68 Respiratory Rate 16 18 Blood Pressure 110/64 110/70 Pulse Oximetry 100 100 Oxygen Delivery Method Room Air Room Air BMI result Body Mass Index 20.0 Medications Medications Current Medications Acetaminophen (Acetaminophen 325 Mg Tablet) 650 mg PO Q6H PRN PRN Reason: Headache/Pain Mild Scale (1-3) Last Admin: 06/29/23 10:39 Dose: 650 mg Al Hydroxide/Mg Hydroxide (Magnesium Hydrox/Alum Hydrox 30 Ml Oral.Susp) 30 ml PO Q6H PRN PRN Reason: Heartburn/Nausea Donepezil HCl (Donepezil Hcl 5 Mg Tablet) 5 mg PO BEDTIME [facility] Last Admin: 07/02/23 20:24 Dose: 5 mg Hydroxyzine HCl (Hydroxyzine Hcl 25 Mg Tablet) 25 mg PO Q6H PRN PRN Reason: Anxiety Last Admin: 06/30/23 20:56 Dose: 25 mg Ibuprofen (Ibuprofen 600 Mg Tablet) 600 mg PO Q6H PRN PRN Reason: pain not relieved by tylenol Magnesium Hydroxide (Milk Of Magnesia 30 Ml Oral.Susp) 30 ml PO DAILY PRN PRN Reason: Constipation Risperidone (Risperidone 0.25 Mg Tablet) 0.5 mg PO BID [facility] Last Admin: 07/03/23 08:29 Dose: 0.5 mg Sertraline HCl (Sertraline Hcl 50 Mg Tablet) 50 mg PO DAILY [facility] Last Admin: 07/03/23 08:29 Dose: 50 mg Trazodone HCl (Trazodone Hcl 50 Mg Tablet) 50 mg PO BEDTIME MRX1 PRN PRN Reason: Insomnia Trazodone HCl (Trazodone Hcl 100 Mg Tablet) 100 mg PO BEDTIME [facility] Last Admin: 07/02/23 20:23 Dose: 100 mg Allergies Allergies Allergy/AdvReac Type Severity Reaction Status Date / Time No Known Allergies Allergy Verified 06/23/23 22:04 Assessment & Plan Assessment & Plan (1) Major neurocognitive disorder: Status: Acute Code(s): F03.90 - Unspecified dementia, unspecified severity, without behavioral disturbance, psychotic disturbance, mood disturbance, and anxiety Plan Pt is a 73-year-old Djiboutian-speaking female with a PMH significant for advanced dementia with behavioral disturbances and delusions, depression, and anxiety who is admitted to [facility] for increasing auditory and visual hallucinations as well as increasing delusional and wandering behaviors. She has apparently been non-compliant with psychiatric medications recently. Medical consult for admission H&P. ?Pt is alert and oriented to self only and thus incapable of providing an accurate HPI. Plan 1. Gather collateral information today we have a family meeting with her daughter at 13:30. 2. Continue with Risperdal and Zoloft as prescribed. 3. Reassessment with results. 4. We will discuss disposition most likely she needs to go to a long-term care. 06/27/2023: No changes to current plan 06/28 continue tx. 06/29 increase risperidone to 0.5mg po BID 06/30 increase risperidone to 1mg po BID. 07/01 continue tx. 07/02 continue tx. 07/03: Continue current regimen and plans Reason for continued inpatient stay Substantial Risk for: inability to function Time Spent With Patient Time: Total time managing care of this patient today ____ minutes.
[2023-07-03 18:00] VITALS: BP 142/70; PULSE 70; RESP 16; TEMP 36.6; O2SAT 98
[2023-07-03] MEDS: traZODone HCL 100 MG TABLET PO (20:29)
[2023-07-03] MEDS: hydrOXYzine HCL 25 MG TABLET PO (20:29)
[2023-07-03] MEDS: Donepezil HCl 5 MG TABLET PO (20:29)
[2023-07-04 08:00] VITALS: BP 100/54; PULSE 65; RESP 16; TEMP 36.4; O2SAT 97
[2023-07-04] MEDS: Sertraline HCL 50 MG TABLET PO (08:28)
[2023-07-04] MEDS: risperiDONE 0.25 MG TABLET 0.5 MG PO (08:28)
--- NOTE | 2023-07-04 10:41 | P.PNPSI_ITS ---
Subjective Subjective Date of Service: 07/04/23 Reason For Visit: Unspec. psychotic D/o, Mixed dementia, delusional Subjective Notes: Conditional Voluntary Interim History: Patient was seen and discussed in rounds today. Records and plans were reviewed. She has been stable with continued paranoia and disorganization. She has been medication compliant. No side effects reported. Eating and sleeping adequately. No changes were made today Medication Compliance: Yes Side effects from medications: No Review of Systems Review of Systems Yes Unobtainable due to mental status Mental Status Exam Mental Status Exam Narrative: In today's visit she is alert. She could not be examined fully because of language barrier. She appears confused. No dangerous behaviors. Cognitively impaired. Judgment is impaired by observation and report Diagnostics Vital Signs (24Hr): Vital Signs - 24 hr 07/03/23 18:00 07/04/23 08:00 Temperature 97.8 F 97.6 F Pulse Rate 70 65 Respiratory Rate 16 16 Blood Pressure 142/70 H 100/54 L Pulse Oximetry 98 97 Oxygen Delivery Method Room Air Room Air BMI result Body Mass Index 20.0 Medications Medications Current Medications Acetaminophen (Acetaminophen 325 Mg Tablet) 650 mg PO Q6H PRN PRN Reason: Headache/Pain Mild Scale (1-3) Last Admin: 06/29/23 10:39 Dose: 650 mg Al Hydroxide/Mg Hydroxide (Magnesium Hydrox/Alum Hydrox 30 Ml Oral.Susp) 30 ml PO Q6H PRN PRN Reason: Heartburn/Nausea Donepezil HCl (Donepezil Hcl 5 Mg Tablet) 5 mg PO BEDTIME [facility] Last Admin: 07/03/23 20:29 Dose: 5 mg Hydroxyzine HCl (Hydroxyzine Hcl 25 Mg Tablet) 25 mg PO Q6H PRN PRN Reason: Anxiety Last Admin: 07/03/23 20:29 Dose: 25 mg Ibuprofen (Ibuprofen 600 Mg Tablet) 600 mg PO Q6H PRN PRN Reason: pain not relieved by tylenol Magnesium Hydroxide (Milk Of Magnesia 30 Ml Oral.Susp) 30 ml PO DAILY PRN PRN Reason: Constipation Risperidone (Risperidone 0.25 Mg Tablet) 0.5 mg PO BID [facility] Last Admin: 07/04/23 08:28 Dose: 0.5 mg Sertraline HCl (Sertraline Hcl 50 Mg Tablet) 50 mg PO DAILY [facility] Last Admin: 07/04/23 08:28 Dose: 50 mg Trazodone HCl (Trazodone Hcl 50 Mg Tablet) 50 mg PO BEDTIME MRX1 PRN PRN Reason: Insomnia Trazodone HCl (Trazodone Hcl 100 Mg Tablet) 100 mg PO BEDTIME [facility] Last Admin: 07/03/23 20:29 Dose: 100 mg Allergies Allergies Allergy/AdvReac Type Severity Reaction Status Date / Time No Known Allergies Allergy Verified 06/23/23 22:04 Assessment & Plan Assessment & Plan (1) Major neurocognitive disorder: Status: Acute Code(s): F03.90 - Unspecified dementia, unspecified severity, without behavioral disturbance, psychotic disturbance, mood disturbance, and anxiety Plan Pt is a 73-year-old Kazakh-speaking female with a PMH significant for advanced dementia with behavioral disturbances and delusions, depression, and anxiety who is admitted to [facility] for increasing auditory and visual hallucinations as well as increasing delusional and wandering behaviors. She has apparently been non-compliant with psychiatric medications recently. Medical consult for admission H&P. ?Pt is alert and oriented to self only and thus incapable of providing an accurate HPI. Plan 1. Gather collateral information today we have a family meeting with her daughter at 13:30. 2. Continue with Risperdal and Zoloft as prescribed. 3. Reassessment with results. 4. We will discuss disposition most likely she needs to go to a long-term care. 06/27/2023: No changes to current plan 06/28 continue tx. 06/29 increase risperidone to 0.5mg po BID 06/30 increase risperidone to 1mg po BID. 07/01 continue tx. 07/02 continue tx. 07/03: Continue current regimen and plans 07/04: Continue current plans and regimen Reason for continued inpatient stay Substantial Risk for: rapid decompensation Time Spent With Patient Time: Total time managing care of this patient today ____ minutes.
[2023-07-04 18:00] VITALS: BP 137/67; PULSE 80; RESP 16; TEMP 37; O2SAT 96
[2023-07-05 07:55] VITALS: BP 112/65; PULSE 68; RESP 16; TEMP 36.8; O2SAT 98
[2023-07-05] MEDS: risperiDONE 0.25 MG TABLET 0.5 MG PO (08:20)
[2023-07-05] MEDS: Sertraline HCL 50 MG TABLET PO (08:20)
--- NOTE | 2023-07-05 09:43 | HO.PSYCHPN ---
Subjective Subjective Date of Service: 07/05/23 Reason For Visit: Unspec. psychotic D/o, Mixed dementia, delusional Subjective Notes: Conditional Voluntary Interim History: Patient was seen and discussed in rounds today. Records and plans were reviewed. She has been stable except for confusion, paranoid ideations and delusions. She refused her meds last night. I will increase her Risperdal to 1 mg. She was seen with the help of an salesperson [employer] today. She has been sleeping adequately. No dangerous behaviors Medication Compliance: Yes Side effects from medications: No Review of Systems Review of Systems Yes all other systems are reviewed and are negative Mental Status Exam Mental Status Exam Narrative: In today's visit she is alert. She was seen with the help of salesperson [employer]. Speech is normal. Good eye contact. Affect is appropriate and varied. She is able to respond to questions appropriately. Thought processes are goal directed. Cognitively is impaired. No overt delusions but staff report paranoid ideations and delusions. Judgment is impaired Diagnostics Vital Signs (24Hr): Vital Signs - 24 hr 07/04/23 18:00 07/05/23 07:55 Temperature 98.6 F 98.2 F Pulse Rate 80 68 Respiratory Rate 16 16 Blood Pressure 137/67 112/65 Pulse Oximetry 96 98 Oxygen Delivery Method Room Air Room Air BMI result Body Mass Index 20.0 Medications Medications Current Medications Acetaminophen (Acetaminophen 325 Mg Tablet) 650 mg PO Q6H PRN PRN Reason: Headache/Pain Mild Scale (1-3) Last Admin: 06/29/23 10:39 Dose: 650 mg Al Hydroxide/Mg Hydroxide (Magnesium Hydrox/Alum Hydrox 30 Ml Oral.Susp) 30 ml PO Q6H PRN PRN Reason: Heartburn/Nausea Donepezil HCl (Donepezil Hcl 5 Mg Tablet) 5 mg PO BEDTIME [facility] Last Admin: 07/04/23 22:49 Dose: Not Given Hydroxyzine HCl (Hydroxyzine Hcl 25 Mg Tablet) 25 mg PO Q6H PRN PRN Reason: Anxiety Last Admin: 07/03/23 20:29 Dose: 25 mg Ibuprofen (Ibuprofen 600 Mg Tablet) 600 mg PO Q6H PRN PRN Reason: pain not relieved by tylenol Magnesium Hydroxide (Milk Of Magnesia 30 Ml Oral.Susp) 30 ml PO DAILY PRN PRN Reason: Constipation Risperidone (Risperidone 0.25 Mg Tablet) 0.5 mg PO BID [facility] Last Admin: 07/05/23 08:20 Dose: 0.5 mg Sertraline HCl (Sertraline Hcl 50 Mg Tablet) 50 mg PO DAILY [facility] Last Admin: 07/05/23 08:20 Dose: 50 mg Trazodone HCl (Trazodone Hcl 50 Mg Tablet) 50 mg PO BEDTIME MRX1 PRN PRN Reason: Insomnia Trazodone HCl (Trazodone Hcl 100 Mg Tablet) 100 mg PO BEDTIME [facility] Last Admin: 07/04/23 22:49 Dose: Not Given Allergies Allergies Allergy/AdvReac Type Severity Reaction Status Date / Time No Known Allergies Allergy Verified 06/23/23 22:04 Assessment & Plan Assessment & Plan (1) Major neurocognitive disorder: Status: Acute Code(s): F03.90 - Unspecified dementia, unspecified severity, without behavioral disturbance, psychotic disturbance, mood disturbance, and anxiety Plan Pt is a 73-year-old Romansh-speaking female with a PMH significant for advanced dementia with behavioral disturbances and delusions, depression, and anxiety who is admitted to [facility] for increasing auditory and visual hallucinations as well as increasing delusional and wandering behaviors. She has apparently been non-compliant with psychiatric medications recently. Medical consult for admission H&P. ?Pt is alert and oriented to self only and thus incapable of providing an accurate HPI. Plan 1. Gather collateral information today we have a family meeting with her daughter at 13:30. 2. Continue with Risperdal and Zoloft as prescribed. 3. Reassessment with results. 4. We will discuss disposition most likely she needs to go to a long-term care. 06/27/2023: No changes to current plan 06/28 continue tx. 06/29 increase risperidone to 0.5mg po BID 06/30 increase risperidone to 1mg po BID. 07/01 continue tx. 07/02 continue tx. 07/03: Continue current regimen and plans 07/04: Continue current plans and regimen 07/05: Continue current plans and regimen. Increased Risperdal to 1 mg Reason for continued inpatient stay Substantial Risk for: rapid decompensation Time Spent With Patient Time: Total time managing care of this patient today ____ minutes.
[2023-07-05 18:00] VITALS: BP 149/61; PULSE 80; RESP 16
[2023-07-05] MEDS: traZODone HCL 100 MG TABLET PO (20:05)
[2023-07-05] MEDS: risperiDONE 1 MG TABLET PO (20:05)
[2023-07-05] MEDS: Donepezil HCl 5 MG TABLET PO (20:05)
[2023-07-05] MEDS: hydrOXYzine HCL 25 MG TABLET PO (21:51)
[2023-07-06 07:55] VITALS: BP 100/60; PULSE 72; RESP 18; TEMP 36.3; O2SAT 99
[2023-07-06] MEDS: risperiDONE 1 MG TABLET PO ×2 (08:17→20:07)
[2023-07-06] MEDS: Sertraline HCL 50 MG TABLET PO (08:17)
--- NOTE | 2023-07-06 09:50 | HO.PSYCHPN ---
Subjective Subjective Date of Service: 07/06/23 Reason For Visit: Unspec. psychotic D/o, Mixed dementia, delusional Subjective Notes: Conditional Voluntary Interim History: The nursing staff reported the patient has complained of visual hallucinations, amend should in got her. She had been confused and oriented to self. Risperdal was recently increased up to 1 mg p.o. b.i.d.. The manager social responsibility reported that she is expected to going back home. On interview the patient denies new symptoms she looks pleasantly confused no evidence of EPS. We will wait for therapeutic response with increase of Risperdal. Mental Status Exam Mental Status Exam Patient Appearance: Appropriate Patient Orientation: Person Level of Consciousness: Awake Patient Behavior: Guarded and Passive Mood Description: Suspicious Affect Description: Constricted Patient Cognition Impaired: Yes Ability to Follow Directions: Fair Speech Pattern: Clear Hallucinations: None Delusions: Paranoid Ideation Thought Process: Distracted and Evasive Thought Content: positive for [place] Judgement: Poor Diagnostics Vital Signs (24Hr): Vital Signs - 24 hr 07/05/23 18:00 07/06/23 07:55 Temperature 97.3 F Pulse Rate 80 72 Respiratory Rate 16 18 Blood Pressure 149/61 H 100/60 Pulse Oximetry 99 Oxygen Delivery Method Room Air Room Air BMI result Body Mass Index 20.0 Medications Medications Current Medications Acetaminophen (Acetaminophen 325 Mg Tablet) 650 mg PO Q6H PRN PRN Reason: Headache/Pain Mild Scale (1-3) Last Admin: 06/29/23 10:39 Dose: 650 mg Al Hydroxide/Mg Hydroxide (Magnesium Hydrox/Alum Hydrox 30 Ml Oral.Susp) 30 ml PO Q6H PRN PRN Reason: Heartburn/Nausea Donepezil HCl (Donepezil Hcl 5 Mg Tablet) 5 mg PO BEDTIME [facility] Last Admin: 07/05/23 20:05 Dose: 5 mg Hydroxyzine HCl (Hydroxyzine Hcl 25 Mg Tablet) 25 mg PO Q6H PRN PRN Reason: Anxiety Last Admin: 07/05/23 21:51 Dose: 25 mg Ibuprofen (Ibuprofen 600 Mg Tablet) 600 mg PO Q6H PRN PRN Reason: pain not relieved by tylenol Magnesium Hydroxide (Milk Of Magnesia 30 Ml Oral.Susp) 30 ml PO DAILY PRN PRN Reason: Constipation Risperidone (Risperidone 1 Mg Tablet) 1 mg PO BID [facility] Last Admin: 07/06/23 08:17 Dose: 1 mg Sertraline HCl (Sertraline Hcl 50 Mg Tablet) 50 mg PO DAILY [facility] Last Admin: 07/06/23 08:17 Dose: 50 mg Trazodone HCl (Trazodone Hcl 50 Mg Tablet) 50 mg PO BEDTIME MRX1 PRN PRN Reason: Insomnia Trazodone HCl (Trazodone Hcl 100 Mg Tablet) 100 mg PO BEDTIME [facility] Last Admin: 07/05/23 20:05 Dose: 100 mg Allergies Allergies Allergy/AdvReac Type Severity Reaction Status Date / Time No Known Allergies Allergy Verified 06/23/23 22:04 Assessment & Plan Assessment & Plan (1) Major neurocognitive disorder: Status: Acute Code(s): F03.90 - Unspecified dementia, unspecified severity, without behavioral disturbance, psychotic disturbance, mood disturbance, and anxiety Plan Pt is a 73-year-old Lithuanian-speaking female with a PMH significant for advanced dementia with behavioral disturbances and delusions, depression, and anxiety who is admitted to [facility] for increasing auditory and visual hallucinations as well as increasing delusional and wandering behaviors. She has apparently been non-compliant with psychiatric medications recently. Medical consult for admission H&P. ?Pt is alert and oriented to self only and thus incapable of providing an accurate HPI. Plan 1. Gather collateral information today we have a family meeting with her daughter at 13:30. 2. Continue with Risperdal and Zoloft as prescribed. Risperdal was increased up to 1 mg p.o. b.i.d. due to visual hallucinations. 3. Reassessment with results. 4. We will discuss disposition most likely she needs to go to a long-term care or home. Reason for continued inpatient stay Substantial Risk for: inability to function, rapid decompensation and med/psych decompensation Time Spent With Patient Time: Total time managing care of this patient today __20__ minutes.
[2023-07-06 18:00] VITALS: BP 94/53; PULSE 80; RESP 16; TEMP 36.6; O2SAT 95
[2023-07-06] MEDS: Donepezil HCl 5 MG TABLET PO (20:07)
[2023-07-07 07:45] VITALS: BP 115/65; PULSE 83; RESP 18; TEMP 36.4; O2SAT 96
[2023-07-07] MEDS: Sertraline HCL 50 MG TABLET PO (08:28)
[2023-07-07] MEDS: risperiDONE 1 MG TABLET PO ×2 (08:28→20:32)
[2023-07-07] MEDS: Acetaminophen 325 MG TABLET 650 MG PO (08:30)
--- NOTE | 2023-07-07 11:03 | HO.PSYCHPN ---
Subjective Subjective Date of Service: 07/07/23 Reason For Visit: Unspec. psychotic D/o, Mixed dementia, delusional Subjective Notes: Conditional Voluntary Interim History: The nursing staff reported the patient had been confused, delusional but pleasant on approach. She had been paranoid again some staff at times. On interview the patient denies new symptoms she is pleasantly confused no side effects. Recently we increase Risperdal up to 1 mg p.o. b.i.d. no evidence of EPS at this moment. Mental Status Exam Mental Status Exam Patient Appearance: Appropriate Patient Orientation: Person and Situation Level of Consciousness: Awake and Appropriate Patient Behavior: Guarded and Passive Mood Description: Withdrawn Affect Description: Constricted Patient Cognition Impaired: Yes Ability to Follow Directions: Good Speech Pattern: Clear Hallucinations: None Delusions: Paranoid Ideation Thought Process: Distracted Thought Content: positive for [employer] and positive for Circumstantial Judgement: Fair Diagnostics Vital Signs (24Hr): Vital Signs - 24 hr 07/06/23 18:00 07/07/23 07:45 Temperature 97.9 F 97.5 F Pulse Rate 80 83 Respiratory Rate 16 18 Blood Pressure 94/53 L 115/65 Pulse Oximetry 95 96 Oxygen Delivery Method Room Air Room Air BMI result Body Mass Index 20.0 Medications Medications Current Medications Acetaminophen (Acetaminophen 325 Mg Tablet) 650 mg PO Q6H PRN PRN Reason: Headache/Pain Mild Scale (1-3) Last Admin: 07/07/23 08:30 Dose: 650 mg Al Hydroxide/Mg Hydroxide (Magnesium Hydrox/Alum Hydrox 30 Ml Oral.Susp) 30 ml PO Q6H PRN PRN Reason: Heartburn/Nausea Donepezil HCl (Donepezil Hcl 10 Mg Tablet) 10 mg PO BEDTIME [facility] Hydroxyzine HCl (Hydroxyzine Hcl 25 Mg Tablet) 25 mg PO Q6H PRN PRN Reason: Anxiety Last Admin: 07/05/23 21:51 Dose: 25 mg Ibuprofen (Ibuprofen 600 Mg Tablet) 600 mg PO Q6H PRN PRN Reason: pain not relieved by tylenol Magnesium Hydroxide (Milk Of Magnesia 30 Ml Oral.Susp) 30 ml PO DAILY PRN PRN Reason: Constipation Risperidone (Risperidone 1 Mg Tablet) 1 mg PO BID [facility] Last Admin: 07/07/23 08:28 Dose: 1 mg Sertraline HCl (Sertraline Hcl 50 Mg Tablet) 50 mg PO DAILY [facility] Last Admin: 07/07/23 08:28 Dose: 50 mg Trazodone HCl (Trazodone Hcl 100 Mg Tablet) 100 mg PO BEDTIME [facility] Last Admin: 07/06/23 20:11 Dose: Not Given Trazodone HCl (Trazodone Hcl 50 Mg Tablet) 50 mg PO BEDTIME PRN PRN Reason: Insomnia Allergies Allergies Allergy/AdvReac Type Severity Reaction Status Date / Time No Known Allergies Allergy Verified 06/23/23 22:04 Assessment & Plan Assessment & Plan (1) Major neurocognitive disorder: Status: Acute Code(s): F03.90 - Unspecified dementia, unspecified severity, without behavioral disturbance, psychotic disturbance, mood disturbance, and anxiety Plan Pt is a 73-year-old Cuban-speaking female with a PMH significant for advanced dementia with behavioral disturbances and delusions, depression, and anxiety who is admitted to [facility] for increasing auditory and visual hallucinations as well as increasing delusional and wandering behaviors. She has apparently been non-compliant with psychiatric medications recently. Medical consult for admission H&P. ?Pt is alert and oriented to self only and thus incapable of providing an accurate HPI. Plan 1. Gather collateral information today we have a family meeting with her daughter at 13:30. 2. Continue with Risperdal and Zoloft as prescribed. Risperdal was increased up to 1 mg p.o. b.i.d. due to visual hallucinations on July 02. 3. Reassessment with results. 4. We will discuss disposition most likely she needs to go to a long-term care or home. Reason for continued inpatient stay Substantial Risk for: inability to function, rapid decompensation and med/psych decompensation Time Spent With Patient Time: Total time managing care of this patient today __20__ minutes.
--- NOTE | 2023-07-07 14:04 | MHC.CLN ---
F/U APPEARS TO BE EATING WELL. TODAY ATE 100% OF BREAKFAST AND LUNCH.
[2023-07-07 19:40] VITALS: BP 106/56; PULSE 75; RESP 16; TEMP 36.7; O2SAT 97
[2023-07-07] MEDS: Donepezil HCl 10 MG TABLET PO (20:32)
[2023-07-07] MEDS: traZODone HCL 100 MG TABLET PO (20:32)
[2023-07-08 07:00] VITALS: BMI 20.4
[2023-07-08 08:24] VITALS: BP 96/60; PULSE 82; RESP 16; TEMP 36.6; O2SAT 95
[2023-07-08] MEDS: Sertraline HCL 50 MG TABLET PO (08:29)
[2023-07-08] MEDS: risperiDONE 1 MG TABLET PO ×2 (08:29→20:26)
[2023-07-08] MEDS: Memantine HCl 5 MG TABLET PO ×2 (09:03→20:26)
--- NOTE | 2023-07-08 12:17 | HO.PSYCHPN ---
Subjective Subjective Date of Service: 07/08/23 Reason For Visit: Unspec. psychotic D/o, Mixed dementia, delusional Subjective Notes: Conditional Voluntary Interim History: Nursing staff reported the patient had been out for meals, she had been pleasant with flat affect and she slept 8 hours. The outreach and education social worker spoke with her daughter and apparently she is not at her baseline. They want her back at home. On interview the patient denies new symptoms she agreed to increase Namenda up to 5 mg p.o. b.i.d.. Still confused but easily redirected. Mental Status Exam Mental Status Exam Patient Appearance: Well Grooomed and Appropriate Patient Orientation: Person and Situation Level of Consciousness: Awake and Appropriate Patient Behavior: Guarded and Passive Mood Description: Calm Affect Description: Calm Patient Cognition Impaired: Yes Ability to Follow Directions: Good Speech Pattern: Clear Hallucinations: None Delusions: Not Present Thought Process: Distracted and Slowed Thinking Thought Content: positive for [place] and positive for [place] of Content Judgement: Fair Diagnostics Vital Signs (24Hr): Vital Signs - 24 hr 07/07/23 19:40 07/08/23 08:24 Temperature 98.0 F 98 F Pulse Rate 75 82 Respiratory Rate 16 16 Blood Pressure 106/56 L 96/60 Pulse Oximetry 97 95 Oxygen Delivery Method Room Air Room Air BMI result Body Mass Index 20.4 Medications Medications Current Medications Acetaminophen (Acetaminophen 325 Mg Tablet) 650 mg PO Q6H PRN PRN Reason: Headache/Pain Mild Scale (1-3) Last Admin: 07/07/23 08:30 Dose: 650 mg Al Hydroxide/Mg Hydroxide (Magnesium Hydrox/Alum Hydrox 30 Ml Oral.Susp) 30 ml PO Q6H PRN PRN Reason: Heartburn/Nausea Donepezil HCl (Donepezil Hcl 10 Mg Tablet) 10 mg PO BEDTIME [facility] Last Admin: 07/07/23 20:32 Dose: 10 mg Hydroxyzine HCl (Hydroxyzine Hcl 25 Mg Tablet) 25 mg PO Q6H PRN PRN Reason: Anxiety Last Admin: 07/05/23 21:51 Dose: 25 mg Ibuprofen (Ibuprofen 600 Mg Tablet) 600 mg PO Q6H PRN PRN Reason: pain not relieved by tylenol Magnesium Hydroxide (Milk Of Magnesia 30 Ml Oral.Susp) 30 ml PO DAILY PRN PRN Reason: Constipation Memantine (Memantine Hcl 5 Mg Tablet) 5 mg PO BID [facility] Last Admin: 07/08/23 09:03 Dose: 5 mg Risperidone (Risperidone 1 Mg Tablet) 1 mg PO BID [facility] Last Admin: 07/08/23 08:29 Dose: 1 mg Sertraline HCl (Sertraline Hcl 50 Mg Tablet) 50 mg PO DAILY [facility] Last Admin: 07/08/23 08:29 Dose: 50 mg Trazodone HCl (Trazodone Hcl 100 Mg Tablet) 100 mg PO BEDTIME [facility] Last Admin: 07/07/23 20:32 Dose: 100 mg Trazodone HCl (Trazodone Hcl 50 Mg Tablet) 50 mg PO BEDTIME PRN PRN Reason: Insomnia Allergies Allergies Allergy/AdvReac Type Severity Reaction Status Date / Time No Known Allergies Allergy Verified 06/23/23 22:04 Assessment & Plan Assessment & Plan (1) Major neurocognitive disorder: Status: Acute Code(s): F03.90 - Unspecified dementia, unspecified severity, without behavioral disturbance, psychotic disturbance, mood disturbance, and anxiety Plan Pt is a 73-year-old Vietnamese-speaking female with a PMH significant for advanced dementia with behavioral disturbances and delusions, depression, and anxiety who is admitted to [facility] for increasing auditory and visual hallucinations as well as increasing delusional and wandering behaviors. She has apparently been non-compliant with psychiatric medications recently. Medical consult for admission H&P. ?Pt is alert and oriented to self only and thus incapable of providing an accurate HPI. Plan 1. Gather collateral information today we have a family meeting with her daughter at 13:30. 2. Continue with Risperdal and Zoloft as prescribed. Risperdal was increased up to 1 mg p.o. b.i.d. due to visual hallucinations on July 02. 3. Reassessment with results. 4. We will discuss disposition most likely she needs to go to a long-term care or home. 5. Start Namenda 5 mg p.o. b.i.d. to target dementia. Reason for continued inpatient stay Substantial Risk for: inability to function, rapid decompensation and med/psych decompensation Time Spent With Patient Time: Total time managing care of this patient today __20__ minutes.
[2023-07-08 18:00] VITALS: BP 139/76; PULSE 75; RESP 18; TEMP 36.4; O2SAT 96
[2023-07-08] MEDS: traZODone HCL 100 MG TABLET PO (20:26)
[2023-07-08] MEDS: Donepezil HCl 10 MG TABLET PO (20:26)
[2023-07-09 07:51] VITALS: BP 95/58; PULSE 71; RESP 16; TEMP 36.2; O2SAT 94
[2023-07-09] MEDS: risperiDONE 1 MG TABLET PO ×2 (08:46→20:50)
[2023-07-09] MEDS: Sertraline HCL 50 MG TABLET PO (08:46)
[2023-07-09] MEDS: Memantine HCl 10 MG TABLET PO ×2 (08:50→20:50)
--- NOTE | 2023-07-09 10:38 | HO.PSYCHPN ---
Subjective Subjective Date of Service: 07/09/23 Reason For Visit: Unspec. psychotic D/o, Mixed dementia, delusional Subjective Notes: Conditional Voluntary Interim History: The nursing staff reported patient has been pleasant, confused, she slept well last night, fully compliant with treatment. On interview the patient denies new symptoms she agreed increase Namenda to 10 mg p.o. b.i.d.. The medical social worker reported that most likely the discharge can happen early next week. Mental Status Exam Mental Status Exam Patient Appearance: Well Grooomed and Appropriate Patient Orientation: Person and Situation Level of Consciousness: Awake and Appropriate Patient Behavior: Guarded and Passive Mood Description: Withdrawn Affect Description: Constricted Patient Cognition Impaired: Yes Ability to Follow Directions: Good Speech Pattern: Clear Hallucinations: None Delusions: Not Present Thought Process: Illogical, Distracted and Evasive Thought Content: positive for [place], positive for Poverty of Content and positive for Loose Associations Judgement: Poor Diagnostics Vital Signs (24Hr): Vital Signs - 24 hr 07/08/23 18:00 07/09/23 07:51 Temperature 97.5 F 97.1 F Pulse Rate 75 71 Respiratory Rate 18 16 Blood Pressure 139/76 95/58 L Pulse Oximetry 96 94 Oxygen Delivery Method Room Air Room Air BMI result Body Mass Index 20.4 Medications Medications Current Medications Acetaminophen (Acetaminophen 325 Mg Tablet) 650 mg PO Q6H PRN PRN Reason: Headache/Pain Mild Scale (1-3) Last Admin: 07/07/23 08:30 Dose: 650 mg Al Hydroxide/Mg Hydroxide (Magnesium Hydrox/Alum Hydrox 30 Ml Oral.Susp) 30 ml PO Q6H PRN PRN Reason: Heartburn/Nausea Donepezil HCl (Donepezil Hcl 10 Mg Tablet) 10 mg PO BEDTIME [facility] Last Admin: 07/08/23 20:26 Dose: 10 mg Hydroxyzine HCl (Hydroxyzine Hcl 25 Mg Tablet) 25 mg PO Q6H PRN PRN Reason: Anxiety Last Admin: 07/05/23 21:51 Dose: 25 mg Ibuprofen (Ibuprofen 600 Mg Tablet) 600 mg PO Q6H PRN PRN Reason: pain not relieved by tylenol Magnesium Hydroxide (Milk Of Magnesia 30 Ml Oral.Susp) 30 ml PO DAILY PRN PRN Reason: Constipation Memantine (Memantine Hcl 10 Mg Tablet) 10 mg PO BID [facility] Last Admin: 07/09/23 08:50 Dose: 10 mg Risperidone (Risperidone 1 Mg Tablet) 1 mg PO BID [facility] Last Admin: 07/09/23 08:46 Dose: 1 mg Sertraline HCl (Sertraline Hcl 50 Mg Tablet) 50 mg PO DAILY [facility] Last Admin: 07/09/23 08:46 Dose: 50 mg Trazodone HCl (Trazodone Hcl 100 Mg Tablet) 100 mg PO BEDTIME [facility] Last Admin: 07/08/23 20:26 Dose: 100 mg Trazodone HCl (Trazodone Hcl 50 Mg Tablet) 50 mg PO BEDTIME PRN PRN Reason: Insomnia Allergies Allergies Allergy/AdvReac Type Severity Reaction Status Date / Time No Known Allergies Allergy Verified 06/23/23 22:04 Assessment & Plan Assessment & Plan (1) Major neurocognitive disorder: Status: Acute Code(s): F03.90 - Unspecified dementia, unspecified severity, without behavioral disturbance, psychotic disturbance, mood disturbance, and anxiety Plan Pt is a 73-year-old Portuguese-speaking female with a PMH significant for advanced dementia with behavioral disturbances and delusions, depression, and anxiety who is admitted to [facility] for increasing auditory and visual hallucinations as well as increasing delusional and wandering behaviors. She has apparently been non-compliant with psychiatric medications recently. Medical consult for admission H&P. ?Pt is alert and oriented to self only and thus incapable of providing an accurate HPI. Plan 1. Gather collateral information today we have a family meeting with her daughter at 13:30. 2. Continue with Risperdal and Zoloft as prescribed. Risperdal was increased up to 1 mg p.o. b.i.d. due to visual hallucinations on July 02. 3. Reassessment with results. 4. We will discuss disposition most likely she needs to go to a long-term care or home. 5. Start Namenda 5 mg p.o. b.i.d. to target dementia. On July 09 Namenda was increased up to 10 mg p.o. b.i.d. to target dementia. Reason for continued inpatient stay Substantial Risk for: inability to function, rapid decompensation and med/psych decompensation Time Spent With Patient Time: Total time managing care of this patient today __20__ minutes.
[2023-07-09] MEDS: Acetaminophen 325 MG TABLET 650 MG PO (12:31)
[2023-07-09 18:00] VITALS: BP 122/78; PULSE 80; RESP 18; TEMP 36.7; O2SAT 96
[2023-07-09] MEDS: traZODone HCL 100 MG TABLET PO (20:50)
[2023-07-09] MEDS: Donepezil HCl 10 MG TABLET PO (20:50)
[2023-07-10 07:53] VITALS: BP 110/65; PULSE 74; RESP 16; TEMP 36.8; O2SAT 95
[2023-07-10] MEDS: Acetaminophen 325 MG TABLET 650 MG PO (08:45)
[2023-07-10] MEDS: Memantine HCl 10 MG TABLET PO ×2 (08:46→20:24)
[2023-07-10] MEDS: Sertraline HCL 50 MG TABLET PO (08:46)
[2023-07-10] MEDS: risperiDONE 1 MG TABLET PO ×2 (08:46→20:24)
[2023-07-10 10:02] LABS: COVID-19 Test Negative (Negative); IDNOW Serial# 08D9AD1C
[2023-07-10] MEDS: SUMAtriptan succinate 50 MG TABLET PO (11:58)
--- NOTE | 2023-07-10 15:05 | HO.PSYCHPN ---
Subjective Subjective Date of Service: 07/10/23 Reason For Visit: Unspec. psychotic D/o, Mixed dementia, delusional Subjective Notes: Conditional Voluntary Interim History: met with patient. Discussed with staff. Patient in dorsal not feeling well today and having a migraine. Does have a history of migraines. Is eating and drinking okay. Medication Compliance: Yes Side effects from medications: No Attending Groups: No Review of Systems Acute medical concerns: No Review of Systems Review of Systems Migraine Mental Status Exam Mental Status Exam Patient Appearance: Well Grooomed and Appropriate Patient Orientation: Person and Situation Level of Consciousness: Awake and Appropriate Patient Behavior: Guarded and Passive Mood Description: Withdrawn Affect Description: Constricted Patient Cognition Impaired: Yes Ability to Follow Directions: Good Speech Pattern: Clear Hallucinations: None Delusions: Not Present Thought Content: positive for [place], positive for Poverty of Content and positive for Loose Associations Judgement: Poor Diagnostics Vital Signs (24Hr): Vital Signs - 24 hr 07/09/23 18:00 07/10/23 07:53 Temperature 98.1 F 98.3 F Pulse Rate 80 74 Respiratory Rate 18 16 Blood Pressure 122/78 110/65 Pulse Oximetry 96 95 Oxygen Delivery Method Room Air Room Air BMI result Body Mass Index 20.4 Labs Labs: Laboratory Results - last 48 hr 07/10/23 09:40 COVID-19 (GERTRUDIS) Negative COVID-19 Clin Com See Note Medications Medications Current Medications Acetaminophen (Acetaminophen 325 Mg Tablet) 650 mg PO Q6H PRN PRN Reason: Headache/Pain Mild Scale (1-3) Last Admin: 07/10/23 08:45 Dose: 650 mg Al Hydroxide/Mg Hydroxide (Magnesium Hydrox/Alum Hydrox 30 Ml Oral.Susp) 30 ml PO Q6H PRN PRN Reason: Heartburn/Nausea Donepezil HCl (Donepezil Hcl 10 Mg Tablet) 10 mg PO BEDTIME [facility] Last Admin: 07/09/23 20:50 Dose: 10 mg Hydroxyzine HCl (Hydroxyzine Hcl 25 Mg Tablet) 25 mg PO Q6H PRN PRN Reason: Anxiety Last Admin: 07/05/23 21:51 Dose: 25 mg Ibuprofen (Ibuprofen 600 Mg Tablet) 600 mg PO Q6H PRN PRN Reason: pain not relieved by tylenol Magnesium Hydroxide (Milk Of Magnesia 30 Ml Oral.Susp) 30 ml PO DAILY PRN PRN Reason: Constipation Memantine (Memantine Hcl 10 Mg Tablet) 10 mg PO BID [facility] Last Admin: 07/10/23 08:46 Dose: 10 mg Risperidone (Risperidone 1 Mg Tablet) 1 mg PO BID [facility] Last Admin: 07/10/23 08:46 Dose: 1 mg Sertraline HCl (Sertraline Hcl 50 Mg Tablet) 50 mg PO DAILY [facility] Last Admin: 07/10/23 08:46 Dose: 50 mg Sumatriptan Succinate (Sumatriptan Succinate 50 Mg Tablet) 50 mg PO DAILY PRN PRN Reason: Migraine Headache Last Admin: 07/10/23 11:58 Dose: 50 mg Trazodone HCl (Trazodone Hcl 100 Mg Tablet) 100 mg PO BEDTIME [facility] Last Admin: 07/09/23 20:50 Dose: 100 mg Trazodone HCl (Trazodone Hcl 50 Mg Tablet) 50 mg PO BEDTIME PRN PRN Reason: Insomnia Allergies Allergies Allergy/AdvReac Type Severity Reaction Status Date / Time No Known Allergies Allergy Verified 06/23/23 22:04 Assessment & Plan Assessment & Plan (1) Major neurocognitive disorder: Status: Acute Code(s): F03.90 - Unspecified dementia, unspecified severity, without behavioral disturbance, psychotic disturbance, mood disturbance, and anxiety Plan Pt is a 73-year-old Romanian-speaking female with a PMH significant for advanced dementia with behavioral disturbances and delusions, depression, and anxiety who is admitted to [facility] for increasing auditory and visual hallucinations as well as increasing delusional and wandering behaviors. She has apparently been non-compliant with psychiatric medications recently. Medical consult for admission H&P. ?Pt is alert and oriented to self only and thus incapable of providing an accurate HPI. Plan 1. Gather collateral information today we have a family meeting with her daughter at 13:30. 2. Continue with Risperdal and Zoloft as prescribed. Risperdal was increased up to 1 mg p.o. b.i.d. due to visual hallucinations on July 02. 3. Reassessment with results. 4. We will discuss disposition most likely she needs to go to a long-term care or home. 5. Start Namenda 5 mg p.o. b.i.d. to target dementia. On July 09 Namenda was increased up to 10 mg p.o. b.i.d. to target dementia. 07/10/2023: Imitrex ordered for migraine Reason for continued inpatient stay Substantial Risk for: inability to function Time Spent With Patient Time: Total time managing care of this patient today ____ minutes.
[2023-07-10 18:00] VITALS: BP 138/83; PULSE 70; RESP 18; TEMP 36.4; O2SAT 96
[2023-07-10] MEDS: traZODone HCL 100 MG TABLET PO (20:24)
[2023-07-10] MEDS: Donepezil HCl 10 MG TABLET PO (20:24)
[2023-07-11 08:35] VITALS: BP 115/61; PULSE 82; RESP 18; TEMP 36.1; O2SAT 95
[2023-07-11] MEDS: SUMAtriptan succinate 50 MG TABLET PO (08:42)
[2023-07-11] MEDS: Sertraline HCL 50 MG TABLET PO (08:43)
[2023-07-11] MEDS: risperiDONE 1 MG TABLET PO ×2 (08:43→19:45)
[2023-07-11] MEDS: Memantine HCl 10 MG TABLET PO ×2 (08:43→19:45)
--- NOTE | 2023-07-11 15:27 | P.PNPSI_ITS ---
Subjective Subjective Date of Service: 07/11/23 Reason For Visit: Unspec. psychotic D/o, Mixed dementia, delusional Subjective Notes: Conditional Voluntary Interim History: met with patient. Discussed with staff. Patient reports headache is better today. Some paranoia ref meds at bedtime/evening and staff. Eating and drinking and out of room earlier today. Medication Compliance: Yes Side effects from medications: No Attending Groups: No Review of Systems Acute medical concerns: No Review of Systems Review of Systems unremarkable Mental Status Exam Mental Status Exam Patient Appearance: Well Grooomed and Appropriate Patient Orientation: Person and Situation Level of Consciousness: Awake and Appropriate Patient Behavior: Guarded and Passive Mood Description: Withdrawn Affect Description: Constricted Patient Cognition Impaired: Yes Ability to Follow Directions: Good Speech Pattern: Clear Hallucinations: None Delusions: Not Present Thought Content: positive for [place], positive for Poverty of Content and positive for Loose Associations Judgement: Poor Diagnostics Vital Signs (24Hr): Vital Signs - 24 hr 07/10/23 18:00 07/11/23 08:35 Temperature 97.6 F 96.9 F Pulse Rate 70 82 Respiratory Rate 18 18 Blood Pressure 138/83 115/61 Pulse Oximetry 96 95 Oxygen Delivery Method Room Air Room Air BMI result Body Mass Index 20.4 Labs Labs: Laboratory Results - last 48 hr 07/10/23 09:40 COVID-19 (GERTRUDIS) Negative COVID-19 Clin Com See Note Medications Medications Current Medications Acetaminophen (Acetaminophen 325 Mg Tablet) 650 mg PO Q6H PRN PRN Reason: Headache/Pain Mild Scale (1-3) Last Admin: 07/10/23 08:45 Dose: 650 mg Al Hydroxide/Mg Hydroxide (Magnesium Hydrox/Alum Hydrox 30 Ml Oral.Susp) 30 ml PO Q6H PRN PRN Reason: Heartburn/Nausea Donepezil HCl (Donepezil Hcl 10 Mg Tablet) 10 mg PO BEDTIME [facility] Last Admin: 07/10/23 20:24 Dose: 10 mg Hydroxyzine HCl (Hydroxyzine Hcl 25 Mg Tablet) 25 mg PO Q6H PRN PRN Reason: Anxiety Last Admin: 07/05/23 21:51 Dose: 25 mg Ibuprofen (Ibuprofen 600 Mg Tablet) 600 mg PO Q6H PRN PRN Reason: pain not relieved by tylenol Magnesium Hydroxide (Milk Of Magnesia 30 Ml Oral.Susp) 30 ml PO DAILY PRN PRN Reason: Constipation Memantine (Memantine Hcl 10 Mg Tablet) 10 mg PO BID [facility] Last Admin: 07/11/23 08:43 Dose: 10 mg Risperidone (Risperidone 1 Mg Tablet) 1 mg PO BID [facility] Last Admin: 07/11/23 08:43 Dose: 1 mg Sertraline HCl (Sertraline Hcl 50 Mg Tablet) 50 mg PO DAILY [facility] Last Admin: 07/11/23 08:43 Dose: 50 mg Sumatriptan Succinate (Sumatriptan Succinate 50 Mg Tablet) 50 mg PO DAILY PRN PRN Reason: Migraine Headache Last Admin: 07/11/23 08:42 Dose: 50 mg Trazodone HCl (Trazodone Hcl 100 Mg Tablet) 100 mg PO BEDTIME [facility] Last Admin: 07/10/23 20:24 Dose: 100 mg Trazodone HCl (Trazodone Hcl 50 Mg Tablet) 50 mg PO BEDTIME PRN PRN Reason: Insomnia Allergies Allergies Allergy/AdvReac Type Severity Reaction Status Date / Time No Known Allergies Allergy Verified 06/23/23 22:04 Assessment & Plan Assessment & Plan (1) Major neurocognitive disorder: Status: Acute Code(s): F03.90 - Unspecified dementia, unspecified severity, without behavioral disturbance, psychotic disturbance, mood disturbance, and anxiety Plan Pt is a 73-year-old Czech-speaking female with a PMH significant for advanced dementia with behavioral disturbances and delusions, depression, and anxiety who is admitted to [facility] for increasing auditory and visual hallucinations as well as increasing delusional and wandering behaviors. She has apparently been non-compliant with psychiatric medications recently. Medical consult for admission H&P. ?Pt is alert and oriented to self only and thus incapable of providing an accurate HPI. Plan 1. Gather collateral information today we have a family meeting with her daughter at 13:30. 2. Continue with Risperdal and Zoloft as prescribed. Risperdal was increased up to 1 mg p.o. b.i.d. due to visual hallucinations on July 02. 3. Reassessment with results. 4. We will discuss disposition most likely she needs to go to a long-term care or home. 5. Start Namenda 5 mg p.o. b.i.d. to target dementia. On July 09 Namenda was increased up to 10 mg p.o. b.i.d. to target dementia. 07/10/2023: Imitrex ordered for migraine 07/11/2023: No changes to current plan Reason for continued inpatient stay Substantial Risk for: inability to function Time Spent With Patient Time: Total time managing care of this patient today ____ minutes.
[2023-07-11 18:00] VITALS: BP 103/66; PULSE 88; RESP 17; TEMP 36.1; O2SAT 97
[2023-07-11] MEDS: Donepezil HCl 10 MG TABLET PO (19:45)
[2023-07-11] MEDS: traZODone HCL 100 MG TABLET PO (19:46)
[2023-07-12 07:50] VITALS: BP 114/55; PULSE 62; RESP 16; TEMP 36.6; O2SAT 96
[2023-07-12] MEDS: Memantine HCl 10 MG TABLET PO ×2 (08:15→20:36)
[2023-07-12] MEDS: Sertraline HCL 50 MG TABLET PO (08:15)
[2023-07-12] MEDS: risperiDONE 1 MG TABLET PO ×2 (08:15→20:36)
--- NOTE | 2023-07-12 14:14 | HO.PSYCHPN ---
Subjective Subjective Date of Service: 07/12/23 Reason For Visit: Unspec. psychotic D/o, Mixed dementia, delusional Subjective Notes: Conditional Voluntary Interim History: The nursing staff reported the patient had been oriented to self, pleasantly confused. Yesterday she had a migraine and took medications. She has been paranoid stating that people were stealing her clothes as but very easily redirectable. On interview the patient denies new symptoms, we will try to discharge her tomorrow to her home with ancillary services in the community. Mental Status Exam Mental Status Exam Patient Appearance: Well Grooomed and Appropriate Patient Orientation: Person and Situation Level of Consciousness: Awake and Appropriate Patient Behavior: Guarded and Passive Mood Description: Withdrawn Affect Description: Constricted Patient Cognition Impaired: Yes Ability to Follow Directions: Good Speech Pattern: Clear Hallucinations: None Delusions: Not Present Thought Process: Distracted and Linear Thought Content: positive for [place] and positive for Circumstantial Judgement: Fair Diagnostics Vital Signs (24Hr): Vital Signs - 24 hr 07/11/23 18:00 07/12/23 07:50 Temperature 96.9 F 97.9 F Pulse Rate 88 62 Respiratory Rate 17 16 Blood Pressure 103/66 114/55 L Pulse Oximetry 97 96 Oxygen Delivery Method Room Air Room Air BMI result Body Mass Index 20.4 Medications Medications Current Medications Acetaminophen (Acetaminophen 325 Mg Tablet) 650 mg PO Q6H PRN PRN Reason: Headache/Pain Mild Scale (1-3) Last Admin: 07/10/23 08:45 Dose: 650 mg Al Hydroxide/Mg Hydroxide (Magnesium Hydrox/Alum Hydrox 30 Ml Oral.Susp) 30 ml PO Q6H PRN PRN Reason: Heartburn/Nausea Donepezil HCl (Donepezil Hcl 10 Mg Tablet) 10 mg PO BEDTIME [facility] Last Admin: 07/11/23 19:45 Dose: 10 mg Hydroxyzine HCl (Hydroxyzine Hcl 25 Mg Tablet) 25 mg PO Q6H PRN PRN Reason: Anxiety Last Admin: 07/05/23 21:51 Dose: 25 mg Ibuprofen (Ibuprofen 600 Mg Tablet) 600 mg PO Q6H PRN PRN Reason: pain not relieved by tylenol Magnesium Hydroxide (Milk Of Magnesia 30 Ml Oral.Susp) 30 ml PO DAILY PRN PRN Reason: Constipation Memantine (Memantine Hcl 10 Mg Tablet) 10 mg PO BID [facility] Last Admin: 07/12/23 08:15 Dose: 10 mg Risperidone (Risperidone 1 Mg Tablet) 1 mg PO BID [facility] Last Admin: 07/12/23 08:15 Dose: 1 mg Sertraline HCl (Sertraline Hcl 50 Mg Tablet) 50 mg PO DAILY [facility] Last Admin: 07/12/23 08:15 Dose: 50 mg Sumatriptan Succinate (Sumatriptan Succinate 50 Mg Tablet) 50 mg PO DAILY PRN PRN Reason: Migraine Headache Last Admin: 07/11/23 08:42 Dose: 50 mg Trazodone HCl (Trazodone Hcl 100 Mg Tablet) 100 mg PO BEDTIME [facility] Last Admin: 07/11/23 19:46 Dose: 100 mg Trazodone HCl (Trazodone Hcl 50 Mg Tablet) 50 mg PO BEDTIME PRN PRN Reason: Insomnia Allergies Allergies Allergy/AdvReac Type Severity Reaction Status Date / Time No Known Allergies Allergy Verified 06/23/23 22:04 Assessment & Plan Assessment & Plan (1) Major neurocognitive disorder: Status: Acute Code(s): F03.90 - Unspecified dementia, unspecified severity, without behavioral disturbance, psychotic disturbance, mood disturbance, and anxiety Plan Pt is a 73-year-old Kazakh-speaking female with a PMH significant for advanced dementia with behavioral disturbances and delusions, depression, and anxiety who is admitted to [facility] for increasing auditory and visual hallucinations as well as increasing delusional and wandering behaviors. She has apparently been non-compliant with psychiatric medications recently. Medical consult for admission H&P. ?Pt is alert and oriented to self only and thus incapable of providing an accurate HPI. Plan 1. Gather collateral information today we have a family meeting with her daughter at 13:30. 2. Continue with Risperdal and Zoloft as prescribed. Risperdal was increased up to 1 mg p.o. b.i.d. due to visual hallucinations on July 02. 3. Reassessment with results. 4. We will discuss disposition most likely she needs to go to a long-term care or home. 5. Start Namenda 5 mg p.o. b.i.d. to target dementia. On July 09 Namenda was increased up to 10 mg p.o. b.i.d. to target dementia. 6. Start discharge planning for tomorrow Reason for continued inpatient stay Substantial Risk for: inability to function, rapid decompensation and med/psych decompensation Time Spent With Patient Time: Total time managing care of this patient today __20__ minutes.
[2023-07-12 18:00] VITALS: BP 108/58; PULSE 88; RESP 16; TEMP 36.8; O2SAT 97
[2023-07-12] MEDS: traZODone HCL 100 MG TABLET PO (20:36)
[2023-07-12] MEDS: Donepezil HCl 10 MG TABLET PO (20:36)
[2023-07-13 07:50] VITALS: BP 110/72; PULSE 80; RESP 18; TEMP 36.8; O2SAT 96
--- NOTE | 2023-07-13 07:57 | PM.PSYDC ---
DS: Providers Provider Date of Service: 07/13/23 Date of admission: 06/23/23 20:42 Date of discharge: 07/13/23 Primary care physician: Unknown Physician Consults: 06/23/23 21:19 Consult to Hospitalist Routine Comment: Consulting Provider: Hospitalist Reason For Exam: OSH admission Attending physician on discharge: Tom Alra DS: Diagnosis Discharge Diagnosis (1) Major neurocognitive disorder: Status: Acute DS: Medications Discharge Medications Home Medications: Home Medications Medication Instructions Recorded Confirmed quetiapine 25 mg tablet (Seroquel) 12.5 mg PO BID 06/24/23 06/24/23 risperidone 0.25 mg tablet 0.25 mg PO BID 06/24/23 06/24/23 sertraline 50 mg tablet 50 mg PO DAILY 06/24/23 06/24/23 trazodone 100 mg PO BEDTIME 06/24/23 06/24/23 trazodone 50 mg tablet 50 mg PO PRN Anxiety 06/24/23 Mental Status Exam Mental Status Exam Patient Appearance: Well Grooomed and Appropriate Patient Orientation: Person, Place and Situation Level of Consciousness: Awake and Appropriate Patient Behavior: Appropriate and Cooperative Mood Description: Calm and Relaxed Affect Description: Calm Patient Cognition Impaired: Yes Ability to Follow Directions: Good Speech Pattern: Clear Hallucinations: None Delusions: Not Present Thought Process: Illogical, Distracted and Slowed Thinking Thought Content: positive for [place] and positive for Poverty of Content Judgement: Fair Data Data Completed and Pending Completed studies during hospitalization [Text1]: 07/10/23 09:40 COVID-19 (GERTRUDIS) Negative COVID-19 Clin Com See Note DS: Summary Hospital Course Hospital Course: The patient is a 73-year-old Tajik female on, only Latvian-speaking, mother of adult children were brought from the emergency room of another hospital since she was found in the streets grossly disorganized, with auditory and visual hallucinations wandering, very confused. She was medically clear transferring to this facility for psychiatric stabilization. Please see the HPI of the admission note for further details. On admission, we gather collateral information apparently she has been suffering from dementia and also she had a psychotic disorder, she was previously admitted into the hospital in [place] for something similar. Apparently, she had been taking Risperdal will for improvement. We started slow titration of Risperdal up to 1 mg p.o. b.i.d. with for improvement for psychotic symptoms. We did several neuro cognitive testing Latvian and the patient scored very low. We decided to start Aricept titrated up to 10 mg p.o. at bedtime and added Namenda up to 10 mg p.o. b.i.d. to target dementia. We kept Risperdal 1 mg p.o. b.i.d. and Zoloft 50 mg p.o. q.a.m.. While she was in the unit she was pleasantly confused, easily redirectable but it was clear that she needed help at home. We had several family meetings and family wants her back home with ancillary services. The social services director did all the referrals for all the ancillary services needed. Since there were no safety concerns discharge planning was discussed. Time spent discussing smoking cessation with patient: 3 to 10 minutes Status at Discharge Cognitive/behavioral status at discharge: Impaired at baseline Functional status at discharge: independent ambulation Overall status at discharge: patient is back to baseline Time Spent with Patient Time attestation: Total time managing care of this patient today __30__ minutes. Time spent: Less than 30 minutes Discharge Plan Discharge Anticipated Discharge Date/Time: 07/13/23 11:00 Patient Disposition: Home Health Service Discharge Diagnosis: Psychosis Dementia Major depressive disorder Referrals: Dr. Ashok Meehan - PCP [Other] - 08/10/23 9:45 am Perri Breen - [facility] [Other] - 1 Week (Perri will reach out to schedule appointment. ) Iam Robin - [facility] clinician [Other] - 07/16/23 2:[address] Fabian Lr - Psychiatrist [Other] - 08/13/23 2:30 pm (Appointment: Is in-person. 08/13/2023 @ 2:30pm ) Physician,Unknown J [Primary Care Provider] - 1 Week Discharge Medications: New acetaminophen 325 mg Tablet 650 mg PO Q6H PRN (Reason: Headache/Pain Mild Scale (1-3)) Qty: 30 0RF donepezil 10 mg Tablet 10 mg PO BEDTIME 30 Days Qty: 30 0RF risperidone 1 mg Tablet 1 mg PO BID 30 Days Qty: 60 0RF sumatriptan succinate 50 mg Tablet 50 mg PO DAILY PRN (Reason: Migraine Headache) 30 Days Qty: 5 0RF memantine [Namenda] 10 mg Tablet 10 mg PO BID 30 Days Qty: 60 0RF Continued sertraline 50 mg Tablet 50 mg PO DAILY 30 Days Qty: 30 0RF Rx Instructions: take 1.5 tablets by mouth daily trazodone tablet 100 mg PO BEDTIME 30 Days Qty: 30 0RF Discontinued risperidone 0.25 mg Tablet 0.25 mg PO BID quetiapine [Seroquel] 25 mg Tablet 12.5 mg PO BID Rx Instructions: 12.5mg bid trazodone 50 mg Tablet 50 mg PO PRN (Reason: Anxiety) Discharge Orders: Discharge Order (Routine); Ordered 07/13/23 Ordered By: Tom Lara Diet: Advance to usual diet Activity on Discharge: As tolerated Stand Alone Forms: Patient Portal Discharge page Care Plan Goals: Care plan goals achieved in this admission Health Concerns: Continue treatment with primary care physician as an outpatient Plan of Treatment: Continue outpatient services by prescriber. Assessment: Elderly Tajik female with a past history of dementia and psychosis admitted for disorganized behavior, wandering the streets. She was treated with Risperdal titrated up to 1 mg p.o. b.i.d. and added Aricept and Namenda to target dementia. At this moment safe to be discharged in the community.
[2023-07-13] MEDS: Memantine HCl 10 MG TABLET PO (08:21)
[2023-07-13] MEDS: Sertraline HCL 50 MG TABLET PO (08:21)
[2023-07-13] MEDS: risperiDONE 1 MG TABLET PO (08:21)
== END 2023-07-13 12:20 | disposition home health service (06) | DRG 885 ==
PROVIDERS: Psychiatry & Neurology Psychiatry; Admitting Provider Psychiatry & Neurology Psychiatry; Visit Provider Psychiatry & Neurology Psychiatry
DX: F32.3 Major depressive disorder, single episode, severe with psychotic features (principal); F03.918 Unspecified dementia, unspecified severity, with other behavioral disturbance; F41.9 Anxiety disorder, unspecified; Z20.822 Contact with and (suspected) exposure to COVID-19; Z91.83 Wandering in diseases classified elsewhere; Z79.899 Other long term (current) drug therapy
CPT/HCPCS: 87635

== ENCOUNTER → 2023-06-23 20:42 | Outpatient (BNV) | payer OTHER, SELFPAY | PROVIDERS: Admitting Provider Psychiatry & Neurology Psychiatry; Visit Provider Psychiatry & Neurology Psychiatry | DX: F03.90 Unspecified dementia, unspecified severity, without behavioral disturbance, psychotic disturbance, mood disturbance, and anxiety (principal) | CPT/HCPCS: 90792; 99231; 99232; 99238 ==

== ENCOUNTER → 2023-06-23 20:42 | Outpatient (BNV) | payer OTHER, SELFPAY | PROVIDERS: Admitting Provider Psychiatry & Neurology Psychiatry; Visit Provider Student in an Organized Health Care Education/Training Program | DX: Z02.2 Encounter for examination for admission to residential institution (principal) | CPT/HCPCS: 99429 ==